=== PATIENT | male | born 1930 | race Caucasian/White ===

== ENCOUNTER → 2016-10-01 | Day surgery (SDC) | payer MEDICARE, OTHER ==
[2016-09-30 16:44] LABS: Urine Bilirubin Negative (Negative); Urine Blood Negative /uL (Negative); Urine Color Yellow (Yellow); Urine Glucose Normal (Normal); Urine Ketone Negative (Negative); Urine Mucus FEW (None Seen); Urine RBC 18 /hpf (0 - 3); Urine Urobilinogen Normal (Negative); Urine WBC Clumps PRESENT /hpf (None Seen)
[2016-09-30 16:52] LABS: Basophils # (auto) 0 uL; Basophils % (auto) 0.3 % (0.0-2.0); Eosinophils # (auto) 0.1 uL; Hemoglobin 13.4 g/dL (13.5-17.5); Lymphocytes # (auto) 1.3 uL; Lymphocytes % (auto) 18.2 % (10.0-50.0); Mean Corpuscular Hemoglobin 30.1 pg (28.0-32.0); Mean Corpuscular Hgb Conc. 31.2 g/dL (32.0-36.0); Mean Corpuscular Volume 96.7 fL (80.0-100.0); Mean Platelet Volume 9.9 fL (7.4-10.4); Monocytes # (auto) 0.6 uL; Monocytes % (auto) 7.7 % (0.0-12.0); Neutrophils # (auto) 5.2 uL; Neutrophils % (auto) 71.8 % (37.0-80.0); Platelet Count (auto) 171 10^3/uL (140-450); Red Cell Distribution Width 14.4 % (11.6-16.0); White Blood Cell 7.3 10^3/uL (4.4-10.8)
[2016-09-30 16:58] LABS: Urine Nitrite POSITIVE (Negative)
[2016-09-30 17:03] LABS: INR 1.09 (0.9-1.15); Partial Thromboplastin Time 26.6 sec (22.64-33.71); Prothrombin Time 11.2 sec (9.37-12.3)
[2016-09-30 17:32] LABS: Albumin 4.1 g/dL (3.4-5.0); Bilirubin, Total 0.5 mg/dL (0.2-1.0); Calcium 8.9 mg/dL (8.5-10.1); Potassium 4.3 mmol/L (3.5-5.1); Total Protein 6.8 g/dL (6.4-8.2)
[~2016-10-01] VITALS: Ht 180.3 cm; Wt 87.1 kg
[~2016-10-01] MED LIST: ASPI-231 PO; BUPIVACAINE 0.75% INJ 10ML MPV SDV IJ ONE; BUPIVACAINE W/ EPINEPH 0.25% INJ 50ML MDV ONE; CHOL500020 OR; CLOP75TA41 PO; CYAN1TAB14 PO; DEXAMETHASONE SOD PHOS 10MG/1ML VIAL INJ ONE; HYDROmorphone HCL 2 MG/ML VL IV PRN; KETOROLAC TROMETH 30 MG/ML 1ML VIAL IV ONE; LABETALOL HCL 5 MG/ML 4ML SYRINGE IV PRN; LEVO50TA7 PO; MIDAZOLAM HCL 1MG/1ML-2 ML VIAL IV PRN; MIDAZOLAM HCL 1MG/1ML-2 ML VIAL ONE; MORPHINE SULF INJ 2 MG/ML SYRINGE 1ML IV PRN; OLME20TA19 PO; OMEG1CAP59 PO; ONDANSETRON HCL 4 MG/2 ML VIAL IV ONE; PRAS1CAP PO; PROPOFOL 10 MG/ML 20 ML IV ONE; PYRI1TAB3 PO; RANO500T2 OR; ROPIVACAINE 0.5% (5MG/ML) 20ML AMPULE IJ ONE; SILVER NITRATE-POTAS NITRA STICK TOP ONE; SILVER SULFADIAZINE 1 % TOPICAL CREAM 50GM TOP ONE; ceFAZolin 1GM VL ONE; ceFAZolin 1GM/50ML D5W 50 ML IV ONE; ePHEDrine SULFATE 50 MG/ML AMP IV PRN; fentaNYL CITRATE 100 MCG/2 ML VL ONE; hydrALAZINE HCL 20 MG/ML VL IV PRN
[2016-10-01 10:59] VITALS: BP 139/68
== END | disposition home or self-care (01) ==
LOC: SUR 07:38
PROVIDERS: ATTEND Podiatrist Foot & Ankle Surgery
DX: L82.0 Inflamed seborrheic keratosis (principal); I10 Essential (primary) hypertension; Z95.0 Presence of cardiac pacemaker; E03.9 Hypothyroidism, unspecified; I25.10 Atherosclerotic heart disease of native coronary artery without angina pectoris; I63.9 Cerebral infarction, unspecified
CPT/HCPCS: 11422; 11423; 36415; 80053; 81001; 85025; 85610; 85730; C1887; J0690; J1100; J2250; J2704; J3010; J3490

== ENCOUNTER → 2016-11-10 | Outpatient (CLI) | payer MEDICARE, OTHER ==
[~2016-11-10] VITALS: Ht 180.3 cm; Wt 83.9 kg
[~2016-11-10] MED LIST changes: -BUPIVACAINE 0.75% INJ 10ML MPV SDV IJ ONE; -BUPIVACAINE W/ EPINEPH 0.25% INJ 50ML MDV ONE; -DEXAMETHASONE SOD PHOS 10MG/1ML VIAL INJ ONE; -HYDROmorphone HCL 2 MG/ML VL IV PRN; -KETOROLAC TROMETH 30 MG/ML 1ML VIAL IV ONE; -LABETALOL HCL 5 MG/ML 4ML SYRINGE IV PRN; -MIDAZOLAM HCL 1MG/1ML-2 ML VIAL IV PRN; -MIDAZOLAM HCL 1MG/1ML-2 ML VIAL ONE; -MORPHINE SULF INJ 2 MG/ML SYRINGE 1ML IV PRN; -ONDANSETRON HCL 4 MG/2 ML VIAL IV ONE; -PROPOFOL 10 MG/ML 20 ML IV ONE; -ROPIVACAINE 0.5% (5MG/ML) 20ML AMPULE IJ ONE; -SILVER NITRATE-POTAS NITRA STICK TOP ONE; -SILVER SULFADIAZINE 1 % TOPICAL CREAM 50GM TOP ONE; -ceFAZolin 1GM VL ONE; -ceFAZolin 1GM/50ML D5W 50 ML IV ONE; -ePHEDrine SULFATE 50 MG/ML AMP IV PRN; -fentaNYL CITRATE 100 MCG/2 ML VL ONE; -hydrALAZINE HCL 20 MG/ML VL IV PRN
[2016-11-10 09:00] VITALS: BP 143/89
[2016-11-10 09:49] VITALS: BP 149/83
[2016-11-10 12:28] LABS: Basophils # (auto) 0 uL; Basophils % (auto) 0.2 % (0.0-2.0); Eosinophils # (auto) 0.1 uL; Eosinophils % (auto) 1.5 % (0.0-7.0); Hematocrit 41.3 % (41.0-53.0); Hemoglobin 13.7 g/dL (13.5-17.5); Lymphocytes # (auto) 0.9 uL; Lymphocytes % (auto) 13.1 % (10.0-50.0); Mean Corpuscular Hemoglobin 31.5 pg (28.0-32.0); Mean Corpuscular Hgb Conc. 33.2 g/dL (32.0-36.0); Mean Corpuscular Volume 95.1 fL (80.0-100.0); Mean Platelet Volume 10.4 fL (7.4-10.4); Monocytes # (auto) 0.4 uL; Monocytes % (auto) 6.4 % (0.0-12.0); Neutrophils # (auto) 5.3 uL; Neutrophils % (auto) 78.8 % (37.0-80.0); Platelet Count (auto) 174 10^3/uL (140-450); Red Cell Distribution Width 14.3 % (11.6-16.0); White Blood Cell 6.7 10^3/uL (4.4-10.8)
[2016-11-10 12:51] LABS: INR 1.07 (0.9-1.15); Partial Thromboplastin Time 25.7 sec (22.64-33.71)
[2016-11-10 13:00] LABS: BUN/Creatinine Ratio 19.8; Potassium 4.2 mmol/L (3.5-5.1)
== END | disposition home or self-care (01) ==
LOC: Rad HDHVI 09:01
PROVIDERS: ATTEND Internal Medicine Cardiovascular Disease
DX: I10 Essential (primary) hypertension (principal); D64.9 Anemia, unspecified; R79.1 Abnormal coagulation profile
CPT/HCPCS: 36415; 71020; 80048; 85025; 85610; 85730; 93005; G0463

== ENCOUNTER → 2017-02-10 | Outpatient (CLI) | payer MEDICARE, OTHER | END | disposition home or self-care (01) | LOC: Rad HDHVI 15:05 | PROVIDERS: ATTEND Internal Medicine Cardiovascular Disease | DX: I20.0 Unstable angina (principal) | CPT/HCPCS: 93306; 93880 ==

== ENCOUNTER → 2017-06-04 | Outpatient (CLI) | payer MEDICARE, OTHER ==
[2017-06-04 12:23] LABS: Urine Bilirubin Negative (Negative); Urine Blood Negative /uL (Negative); Urine Color Yellow (Yellow); Urine Glucose 3+ mg/dL (Normal); Urine Ketone Negative (Negative); Urine Nitrite Negative (Negative); Urine Urobilinogen Normal (Negative)
[2017-06-04 12:24] LABS: Basophils # (auto) 0 uL; Basophils % (auto) 0.3 % (0.0-2.0); Eosinophils # (auto) 0.1 uL; Eosinophils % (auto) 2.8 % (0.0-7.0); Hematocrit 42.2 % (41.0-53.0); Hemoglobin 14.3 g/dL (13.5-17.5); Lymphocytes % (auto) 19.9 % (10.0-50.0); Mean Corpuscular Hemoglobin 32.9 pg (28.0-32.0); Mean Corpuscular Hgb Conc. 33.8 g/dL (32.0-36.0); Mean Corpuscular Volume 97.3 fL (80.0-100.0); Mean Platelet Volume 9.7 fL (6.9-10.8); Monocytes # (auto) 0.4 uL; Monocytes % (auto) 8.4 % (0.0-12.0); Neutrophils # (auto) 3.5 uL; Neutrophils % (auto) 68.6 % (37.0-80.0); Nucleated Red Blood Cells % 0.2 %; Platelet Count (auto) 150 10^3/uL (140-450); Red Cell Distribution Width 14.3 % (11.8-14.3); White Blood Cell 5.1 10^3/uL (4.4-10.8)
[2017-06-04 12:46] LABS: BUN/Creatinine Ratio 17.1; Bilirubin, Direct 0.2 mg/dL (0-0.2); Bilirubin, Total 0.6 mg/dL (0.2-1.0); Calcium 9.6 mg/dL (8.5-10.1); Potassium 4.3 mmol/L (3.5-5.1); Total Protein 7.2 g/dL (6.4-8.2)
== END | disposition home or self-care (01) ==
LOC: LAB 08:27
PROVIDERS: ATTEND Internal Medicine Cardiovascular Disease
DX: I10 Essential (primary) hypertension (principal); E78.00 Pure hypercholesterolemia, unspecified; K74.1 Hepatic sclerosis; E11.9 Type 2 diabetes mellitus without complications; R97.20 Elevated prostate specific antigen [PSA]; R53.81 Other malaise; E03.9 Hypothyroidism, unspecified; D64.9 Anemia, unspecified; E55.9 Vitamin D deficiency, unspecified; N39.0 Urinary tract infection, site not specified
CPT/HCPCS: 36415; 80048; 80061; 80076; 81003; 82306; 83036; 84153; 84403; 84443; 85025; 87086; 87088; 87186

== ENCOUNTER → 2017-12-04 | Outpatient (CLI) | payer MEDICARE, OTHER | END | disposition home or self-care (01) | LOC: Rad HDHVI 12:40 | PROVIDERS: ATTEND Internal Medicine Cardiovascular Disease | DX: M77.31 Calcaneal spur, right foot (principal); I10 Essential (primary) hypertension; E11.9 Type 2 diabetes mellitus without complications; E78.00 Pure hypercholesterolemia, unspecified; Z95.0 Presence of cardiac pacemaker | CPT/HCPCS: 73630 ==

== ENCOUNTER → 2017-12-25 | Outpatient (CLI) | payer MEDICARE, OTHER ==
[~2017-12-25] VITALS: Ht 180.3 cm; Wt 81.6 kg
== END | disposition home or self-care (01) ==
LOC: Rad HDHVI 08:06
PROVIDERS: ATTEND Internal Medicine Cardiovascular Disease
DX: Z00.01 Encounter for general adult medical examination with abnormal findings (principal); I63.9 Cerebral infarction, unspecified; I25.10 Atherosclerotic heart disease of native coronary artery without angina pectoris; M19.90 Unspecified osteoarthritis, unspecified site; I10 Essential (primary) hypertension; E78.00 Pure hypercholesterolemia, unspecified; E11.9 Type 2 diabetes mellitus without complications; Z95.0 Presence of cardiac pacemaker
CPT/HCPCS: 78452; 93017; 96374; A9500

== ENCOUNTER → 2018-06-30 | Outpatient (CLI) | payer MEDICARE, OTHER ==
[2018-06-30 12:14] LABS: Basophils # (auto) 0 uL; Basophils % (auto) 0.4 % (0.0-2.0); Eosinophils # (auto) 0.1 uL; Eosinophils % (auto) 1.9 % (0.0-7.0); Hematocrit 41.3 % (41.0-53.0); Hemoglobin 13.6 g/dL (13.5-17.5); Lymphocytes # (auto) 1.1 uL; Lymphocytes % (auto) 19.1 % (10.0-50.0); Mean Corpuscular Hemoglobin 32.6 pg (28.0-32.0); Mean Corpuscular Hgb Conc. 32.9 g/dL (32.0-36.0); Mean Corpuscular Volume 99.1 fL (80.0-100.0); Monocytes # (auto) 0.6 uL; Monocytes % (auto) 9.6 % (0.0-12.0); Nucleated Red Blood Cells % 0.2 %; Platelet Count (auto) 155 10^3/uL (140-450); Red Blood Cells 4.17 10^6/uL (4.5-5.90); Red Cell Distribution Width 14.9 % (11.8-14.3); Urine Blood Negative /uL (Negative); Urine Specific Gravity 1.023 (1.001-1.035); White Blood Cell 5.8 10^3/uL (4.4-10.8)
[2018-06-30 12:36] LABS: Albumin 3.6 g/dL (3.4-5.0)
[2018-06-30 12:40] LABS: BUN/Creatinine Ratio 22.8; Bilirubin, Direct 0.2 mg/dL (0-0.2); Bilirubin, Total 0.5 mg/dL (0.2-1.0); Total Protein 6.8 g/dL (6.4-8.2)
== END | disposition home or self-care (01) ==
LOC: Rad HDHVI 10:38
PROVIDERS: ATTEND Internal Medicine Cardiovascular Disease
DX: M16.12 Unilateral primary osteoarthritis, left hip (principal); K57.30 Diverticulosis of large intestine without perforation or abscess without bleeding; K40.90 Unilateral inguinal hernia, without obstruction or gangrene, not specified as recurrent; E78.5 Hyperlipidemia, unspecified; E03.9 Hypothyroidism, unspecified; E55.9 Vitamin D deficiency, unspecified; C61 Malignant neoplasm of prostate; E29.1 Testicular hypofunction; D51.9 Vitamin B12 deficiency anemia, unspecified; K74.1 Hepatic sclerosis; I10 Essential (primary) hypertension; N39.0 Urinary tract infection, site not specified; E11.9 Type 2 diabetes mellitus without complications; Z91.81 History of falling
CPT/HCPCS: 36415; 73700; 80048; 80061; 80076; 81003; 82306; 83036; 84153; 84403; 84443; 85025

== ENCOUNTER → 2018-07-06 | Outpatient (CLI) | payer MEDICARE, OTHER ==
[2018-07-06 10:25] VITALS: BP 146/84
[2018-07-06 10:40] VITALS: BP 140/80
== END | disposition home or self-care (01) ==
LOC: CHF HDHVI 10:33
PROVIDERS: ATTEND Internal Medicine Cardiovascular Disease
DX: S81.811A Laceration without foreign body, right lower leg, initial encounter (principal); X58.XXXA Exposure to other specified factors, initial encounter; Y93.89 Activity, other specified; Y92.89 Other specified places as the place of occurrence of the external cause; Y99.8 Other external cause status
CPT/HCPCS: G0463

== ENCOUNTER → 2018-07-09 | Outpatient (CLI) | payer MEDICARE, OTHER ==
[2018-07-09 09:30] VITALS: BP 150/52
== END | disposition home or self-care (01) ==
LOC: CHF HDHVI 09:26
PROVIDERS: ATTEND Internal Medicine Cardiovascular Disease
DX: S81.811A Laceration without foreign body, right lower leg, initial encounter (principal); X58.XXXA Exposure to other specified factors, initial encounter; Y93.89 Activity, other specified; Y92.89 Other specified places as the place of occurrence of the external cause; Y99.8 Other external cause status
CPT/HCPCS: G0463

== ENCOUNTER → 2018-07-16 | Outpatient (CLI) | payer MEDICARE, OTHER ==
[2018-07-16 09:30] VITALS: BP 130/71
[2018-07-16 10:15] VITALS: BP 125/71
== END | disposition home or self-care (01) ==
LOC: CHF HDHVI 09:34
PROVIDERS: ATTEND Internal Medicine Cardiovascular Disease
DX: S81.801A Unspecified open wound, right lower leg, initial encounter (principal); X58.XXXA Exposure to other specified factors, initial encounter; Y93.89 Activity, other specified; Y92.89 Other specified places as the place of occurrence of the external cause; Y99.8 Other external cause status
CPT/HCPCS: G0463

== ENCOUNTER → 2018-07-26 | Outpatient (CLI) | payer MEDICARE, OTHER ==
[~2018-07-26] VITALS: Ht 30.5 cm; Wt 0.5 kg
[~2018-07-26] MED LIST changes: +SILVER SULFADIAZINE 1 % TOPICAL CREAM 50GM TOP ONE; +SILVER SULFADIAZINE 1 % TOPICAL CREAM 50GM TOP SCH
[2018-07-26 09:10] VITALS: BP 130/78
[2018-07-26 09:40] VITALS: BP 130/80
== END | disposition home or self-care (01) ==
LOC: CHF HDHVI 09:11
PROVIDERS: ATTEND Internal Medicine Cardiovascular Disease
DX: S88.111A Complete traumatic amputation at level between knee and ankle, right lower leg, initial encounter (principal); X58.XXXA Exposure to other specified factors, initial encounter; Y93.89 Activity, other specified; Y92.89 Other specified places as the place of occurrence of the external cause; Y99.8 Other external cause status
CPT/HCPCS: G0463

== ENCOUNTER → 2018-07-28 | Outpatient (CLI) | payer MEDICARE, OTHER ==
[~2018-07-28] MED LIST changes: -SILVER SULFADIAZINE 1 % TOPICAL CREAM 50GM TOP SCH
[2018-07-28 09:15] VITALS: BP 136/73
== END | disposition home or self-care (01) ==
LOC: CHF HDHVI 09:07
PROVIDERS: ATTEND Internal Medicine Cardiovascular Disease
DX: S81.811A Laceration without foreign body, right lower leg, initial encounter (principal); X58.XXXA Exposure to other specified factors, initial encounter; Y93.89 Activity, other specified; Y92.89 Other specified places as the place of occurrence of the external cause; Y99.8 Other external cause status
CPT/HCPCS: G0463

== ENCOUNTER → 2018-07-30 | Outpatient (CLI) | payer MEDICARE, OTHER ==
[2018-07-30 09:40] VITALS: BP 147/66
== END | disposition home or self-care (01) ==
LOC: CHF HDHVI 09:41
PROVIDERS: ATTEND Internal Medicine Cardiovascular Disease
DX: S81.811A Laceration without foreign body, right lower leg, initial encounter (principal); X58.XXXA Exposure to other specified factors, initial encounter; Y93.89 Activity, other specified; Y92.89 Other specified places as the place of occurrence of the external cause; Y99.8 Other external cause status
CPT/HCPCS: G0463

== ENCOUNTER → 2018-08-02 | Outpatient (CLI) | payer MEDICARE, OTHER ==
[~2018-08-02] MED LIST changes: -SILVER SULFADIAZINE 1 % TOPICAL CREAM 50GM TOP ONE
[2018-08-02 08:10] VITALS: BP 143/68
[2018-08-02 08:30] VITALS: BP 142/64
== END | disposition home or self-care (01) ==
LOC: CHF HDHVI 08:09
PROVIDERS: ATTEND Internal Medicine Cardiovascular Disease
DX: M79.661 Pain in right lower leg (principal)
CPT/HCPCS: G0463

== ENCOUNTER → 2018-08-04 | Outpatient (CLI) | payer MEDICARE, OTHER ==
[2018-08-04 08:00] VITALS: BP 114/77
[2018-08-04 08:30] VITALS: BP 128/87
[2018-08-04 08:35] VITALS: BP 128/84
== END | disposition home or self-care (01) ==
LOC: CHF HDHVI 08:26
PROVIDERS: ATTEND Internal Medicine Cardiovascular Disease
DX: I25.10 Atherosclerotic heart disease of native coronary artery without angina pectoris (principal)
CPT/HCPCS: G0463

== ENCOUNTER → 2018-08-09 | Outpatient (CLI) | payer MEDICARE, OTHER ==
[2018-08-09 08:10] VITALS: BP 146/66
== END | disposition home or self-care (01) ==
LOC: CHF HDHVI 08:20
PROVIDERS: ATTEND Internal Medicine Cardiovascular Disease
DX: I25.10 Atherosclerotic heart disease of native coronary artery without angina pectoris (principal)
CPT/HCPCS: G0463

== ENCOUNTER → 2018-08-11 | Outpatient (CLI) | payer MEDICARE, OTHER ==
[2018-08-11 08:05] VITALS: BP 135/80
[2018-08-11 08:45] VITALS: BP 135/73
== END | disposition home or self-care (01) ==
LOC: CHF HDHVI 08:17
PROVIDERS: ATTEND Internal Medicine Cardiovascular Disease
DX: S88.111A Complete traumatic amputation at level between knee and ankle, right lower leg, initial encounter (principal); X58.XXXA Exposure to other specified factors, initial encounter; Y93.89 Activity, other specified; Y92.89 Other specified places as the place of occurrence of the external cause; Y99.8 Other external cause status
CPT/HCPCS: G0463

== ENCOUNTER → 2018-08-13 | Outpatient (CLI) | payer MEDICARE, OTHER ==
[2018-08-13 08:30] VITALS: BP 151/70
[2018-08-13 08:53] VITALS: BP 153/64
== END | disposition home or self-care (01) ==
LOC: CHF HDHVI 08:32
PROVIDERS: ATTEND Internal Medicine Cardiovascular Disease
DX: S81.811A Laceration without foreign body, right lower leg, initial encounter (principal); X58.XXXA Exposure to other specified factors, initial encounter; Y93.89 Activity, other specified; Y92.89 Other specified places as the place of occurrence of the external cause; Y99.8 Other external cause status
CPT/HCPCS: G0463

== ENCOUNTER → 2018-08-16 | Outpatient (CLI) | payer MEDICARE, OTHER ==
[2018-08-16 08:30] VITALS: BP 148/72
[2018-08-16 09:00] VITALS: BP 128/64
== END | disposition home or self-care (01) ==
LOC: CHF HDHVI 08:32
PROVIDERS: ATTEND Internal Medicine Cardiovascular Disease
DX: M25.78 Osteophyte, vertebrae (principal); M48.061 Spinal stenosis, lumbar region without neurogenic claudication; S81.811A Laceration without foreign body, right lower leg, initial encounter; X58.XXXA Exposure to other specified factors, initial encounter; Y93.89 Activity, other specified; Y92.89 Other specified places as the place of occurrence of the external cause; Y99.8 Other external cause status
CPT/HCPCS: 72100; G0463

== ENCOUNTER → 2018-08-18 | Outpatient (CLI) | payer MEDICARE, OTHER ==
[2018-08-18 08:55] VITALS: BP 166/84
[2018-08-18 09:15] VITALS: BP 166/84
[2018-08-18 09:25] VITALS: BP 152/84
== END | disposition home or self-care (01) ==
LOC: CHF HDHVI 09:01
PROVIDERS: ATTEND Internal Medicine Cardiovascular Disease
DX: S81.801D Unspecified open wound, right lower leg, subsequent encounter (principal); X58.XXXD Exposure to other specified factors, subsequent encounter
CPT/HCPCS: G0463

== ENCOUNTER → 2018-08-20 | Outpatient (CLI) | payer MEDICARE, OTHER ==
[2018-08-20 08:45] VITALS: BP 131/67
[2018-08-20 09:30] VITALS: BP 135/66
== END | disposition home or self-care (01) ==
LOC: CHF HDHVI 08:45
PROVIDERS: ATTEND Internal Medicine Cardiovascular Disease
DX: S81.811A Laceration without foreign body, right lower leg, initial encounter (principal); X58.XXXA Exposure to other specified factors, initial encounter; Y93.89 Activity, other specified; Y92.89 Other specified places as the place of occurrence of the external cause; Y99.8 Other external cause status
CPT/HCPCS: G0463

== ENCOUNTER → 2018-08-23 | Outpatient (CLI) | payer MEDICARE, OTHER ==
[2018-08-23 07:55] VITALS: BP 155/79
[2018-08-23 08:20] VITALS: BP 155/79
[2018-08-23 08:25] VITALS: BP 136/59
== END | disposition home or self-care (01) ==
LOC: CHF HDHVI 07:52
PROVIDERS: ATTEND Internal Medicine Cardiovascular Disease
DX: S88.111A Complete traumatic amputation at level between knee and ankle, right lower leg, initial encounter (principal); X58.XXXA Exposure to other specified factors, initial encounter; Y93.89 Activity, other specified; Y92.89 Other specified places as the place of occurrence of the external cause; Y99.8 Other external cause status
CPT/HCPCS: G0463

== ENCOUNTER 2019-02-03 13:18 | Emergency (ER) | payer MEDICARE, OTHER ==
[~2019-02-03] VITALS: Ht 180.3 cm; Wt 81.6 kg
[2019-02-03] MEDS ORDERED: ACETAMINOPHEN 500 MG TAB PO ONE (13:45)
[2019-02-03 14:29] LABS: Basophils # (auto) 0 uL; Basophils % (auto) 0.2 % (0.0-2.0); Eosinophils # (auto) 0 uL; Eosinophils % (auto) 0.2 % (0.0-7.0); Hematocrit 37.3 % (41.0-53.0); Hemoglobin 12.8 g/dL (13.5-17.5); Lymphocytes # (auto) 0.4 uL; Lymphocytes % (auto) 6.6 % (10.0-50.0); Mean Corpuscular Hemoglobin 32.7 pg (28.0-32.0); Mean Corpuscular Hgb Conc. 34.2 g/dL (32.0-36.0); Mean Corpuscular Volume 95.6 fL (80.0-100.0); Monocytes # (auto) 0.7 uL; Monocytes % (auto) 12.1 % (0.0-12.0); Neutrophils # (auto) 4.7 uL; Neutrophils % (auto) 80.9 % (37.0-80.0); Platelet Count (auto) 116 10^3/uL (140-450); Red Cell Distribution Width 13.8 % (11.8-14.3); White Blood Cell 5.8 10^3/uL (4.4-10.8)
[2019-02-03 14:42] LABS: Anion Gap 8 (5-15); Blood Urea Nitrogen 24 mg/dL (7-18); Calcium 8.1 mg/dL (8.5-10.1); Carbon Dioxide 25 mmol/L (21-32); Chloride 100 mmol/L (98-107); Glucose 219 mg/dL (74-106); Sodium 133 mmol/L (136-145)
[2019-02-03 14:50] LABS: Alanine Aminotransferase 21 U/L (16-61); Alkaline Phosphatase 60 U/L (45-117); Aspartate Aminotransferase 15 U/L (15-37); Bilirubin, Total 0.6 mg/dL (0.2-1.0); GFR African American 73 mL/min; GFR Non-African American 61 mL/min; Lactate Dehydrogenase 166 U/L (87-241); Total Protein 6.7 g/dL (6.4-8.2)
[2019-02-03] MEDS ORDERED: SODIUM CHLORIDE 0.9% 1,000 ML IV ONE (15:46)
[2019-02-03] MEDS ORDERED: DOXYCYCLINE 100MG/250ML 250 ML IV ONE (16:00)
[2019-02-03] MEDS ORDERED: LEVOFLOXACIN 500MG 100 ML IV ONE (16:45)
[2019-02-03 18:00] VITALS: BP 135/57
== END 2019-02-03 18:16 | disposition home or self-care (01) ==
LOC: EDBD 13:18 → EDUNIT# 13:18 → ER 13:28
DX: J18.9 Pneumonia, unspecified organism (principal); L03.115 Cellulitis of right lower limb; Z95.0 Presence of cardiac pacemaker
CPT/HCPCS: 36415; 71045; 80053; 83615; 84484; 85025; 87040; 93005; 96365; 96366; 96368; 99284; J1956; J3490; J7030

== ENCOUNTER → 2019-03-28 | Outpatient (CLI) | payer MEDICARE, OTHER ==
[~2019-03-28] MED LIST changes: -OLME20TA19 PO; +OLME20TA53 PO
== END | disposition home or self-care (01) ==
LOC: Rad HDHVI 09:43
PROVIDERS: ATTEND Internal Medicine Cardiovascular Disease
DX: I73.9 Peripheral vascular disease, unspecified (principal)
CPT/HCPCS: 93970

== ENCOUNTER → 2019-04-01 | Outpatient (CLI) | payer MEDICARE, OTHER ==
[2019-04-01 13:39] LABS: Urine WBC None Seen /hpf (0 - 3)
[2019-04-01 13:52] LABS: Basophils # (auto) 0 uL; Basophils % (auto) 0.4 % (0.0-2.0); Eosinophils # (auto) 0.1 uL; Eosinophils % (auto) 1.8 % (0.0-7.0); Hematocrit 40.3 % (41.0-53.0); Hemoglobin 13.6 g/dL (13.5-17.5); Lymphocytes # (auto) 1.3 uL; Lymphocytes % (auto) 21.9 % (10.0-50.0); Mean Corpuscular Hemoglobin 32.5 pg (28.0-32.0); Mean Corpuscular Hgb Conc. 33.7 g/dL (32.0-36.0); Mean Corpuscular Volume 96.4 fL (80.0-100.0); Monocytes # (auto) 0.6 uL; Monocytes % (auto) 10.1 % (0.0-12.0); Neutrophils # (auto) 3.8 uL; Neutrophils % (auto) 65.8 % (37.0-80.0); Platelet Count (auto) 147 10^3/uL (140-450); Red Blood Cells 4.18 10^6/uL (4.5-5.90); Red Cell Distribution Width 14.7 % (11.8-14.3); White Blood Cell 5.7 10^3/uL (4.4-10.8)
[2019-04-01 13:57] LABS: Urine Bacteria NONE SEEN /hpf (None Seen); Urine Blood Negative /uL (Negative)
[2019-04-01 14:03] LABS: Albumin 3.8 g/dL (3.4-5.0); Calcium 8.9 mg/dL (8.5-10.1)
[2019-04-01 14:07] LABS: BUN/Creatinine Ratio 17.6; Bilirubin, Total 0.7 mg/dL (0.2-1.0); Total Protein 6.9 g/dL (6.4-8.2)
[2019-04-01 14:11] LABS: Free T4 (Free Thyroxine) 0.87 ng/dL (0.89-1.76)
== END | disposition home or self-care (01) ==
LOC: LAB 13:28
PROVIDERS: ATTEND Internal Medicine Cardiovascular Disease
DX: N39.0 Urinary tract infection, site not specified (principal); D51.9 Vitamin B12 deficiency anemia, unspecified; E03.9 Hypothyroidism, unspecified; K90.9 Intestinal malabsorption, unspecified; Z79.899 Other long term (current) drug therapy
CPT/HCPCS: 36415; 80053; 80061; 81001; 82607; 83036; 84439; 84443; 85025

== ENCOUNTER → 2019-05-25 | Outpatient (CLI) | payer MEDICARE, OTHER ==
[~2019-05-25] VITALS: Ht 30.5 cm; Wt 0.5 kg
[~2019-05-25] MED LIST changes: +LEVO25TA6 PO
[2019-05-25 09:55] VITALS: BP 134/75
--- NOTE | 2019-05-25 09:55 | NUR ---
CHF PT ARRIVED AT THE CHF CLINIC FOR HARD TIME BREATHING , 0 DISTRESS THOUGH JUST PAIN NOTED TO LOWER DIAPHRAGM. VSS IV STARTED PT SENT FOR CHEST XRAY
--- NOTE | 2019-05-25 10:00 | NUR ---
IV insertion IV access obtained, via clean sterile technique by inserting 20 gauge catheter at after attempt(s). IV secured properly. No trauma to site. Patient tolerated procedure well.
--- NOTE | 2019-05-25 11:00 | NUR ---
EKG DONE MD LOVING UPDATE WITH EKG AND LABS
[2019-05-25 11:42] LABS: Basophils # (auto) 0.1 uL; Basophils % (auto) 0.5 % (0.0-2.0); Eosinophils # (auto) 0 uL; Eosinophils % (auto) 0.3 % (0.0-7.0); Hematocrit 39.6 % (41.0-53.0); Hemoglobin 13.7 g/dL (13.5-17.5); Lymphocytes # (auto) 0.9 uL; Lymphocytes % (auto) 9.4 % (10.0-50.0); Mean Corpuscular Hgb Conc. 34.5 g/dL (32.0-36.0); Mean Corpuscular Volume 95.5 fL (80.0-100.0); Monocytes # (auto) 0.9 uL; Monocytes % (auto) 8.6 % (0.0-12.0); Neutrophils # (auto) 8.1 uL; Neutrophils % (auto) 81.2 % (37.0-80.0); Platelet Count (auto) 143 10^3/uL (140-450); Red Blood Cells 4.15 10^6/uL (4.5-5.90); Red Cell Distribution Width 14.5 % (11.8-14.3)
[2019-05-25 11:44] LABS: Calcium 9.1 mg/dL (8.5-10.1); Magnesium 2.7 mg/dL (1.6-2.6)
--- NOTE | 2019-05-25 12:15 | NUR ---
[facility] PT TO BE SCHEDULED FOR A LEFT HEART CATH PER MD LOVING
[2019-05-25 12:25] VITALS: BP 134/75
--- NOTE | 2019-05-25 12:25 | NUR ---
Discharge Instructions See e-MAR for any mediations given with this visit. Patient education given on disease process. Patient verbalized understanding. Previous labs reviewed. Patient discharged in stable condition with after care instructions and follow up appointment. PT UPDATED ON DR OSPINA PLAN TO PERFORM A LEFT HEART CATH
--- NOTE | 2019-05-25 12:25 | NUR ---
IV removal IV DC'd with sterile technique, catheter fully intact. Pressure dressing applied to site. Patient tolerated procedure well. Discharged with aftercare instructions per MD. NOTE:
[2019-05-25 15:43] LABS: INR 0.99 (0.9-1.15); Partial Thromboplastin Time 25.9 sec (23.64-32.05)
== END | disposition home or self-care (01) ==
LOC: CHF HDHVI 09:53
PROVIDERS: ATTEND Internal Medicine Cardiovascular Disease
DX: I70.0 Atherosclerosis of aorta (principal); R79.1 Abnormal coagulation profile; D64.9 Anemia, unspecified; E83.40 Disorders of magnesium metabolism, unspecified; I10 Essential (primary) hypertension
CPT/HCPCS: 36415; 71046; 80048; 83735; 85025; 85610; 85730; G0463

== ENCOUNTER 2019-06-02 08:35 | Inpatient (IN) | payer MEDICARE, OTHER ==
[2019-06-02] VITALS (35 sets, daily range): BP systolic 95–124; BP diastolic 49–86
[~2019-06-02] VITALS: Ht 180.3 cm; Wt 80.0 kg
[~2019-06-02 08:35] MED LIST changes: -LEVO25TA6 PO
[2019-06-02] MEDS ORDERED: LIDOCAINE 2%HCL (LOCAL ANESTH.) INJ 20ML MDV ONE (10:48)
[2019-06-02] MEDS ORDERED: IOHEXOL 350 MG/ML 100ML IJ ONE (10:58)
[2019-06-02] MEDS ORDERED: SODIUM CHL 0.9% 0 ML ONE (10:58)
[2019-06-02] MEDS ORDERED: MIDAZOLAM HCL 1MG/1ML-2 ML VIAL ONE (10:58)
[2019-06-02] MEDS ORDERED: ANGIOMAX 250 MG VIAL IV ONE (10:58)
[2019-06-02] MEDS ORDERED: fentaNYL CITRATE 100 MCG/2 ML VL ONE (10:58)
[2019-06-02] MEDS ORDERED: ENOXAPARIN SOD 30 MG/0.3 ML SYRINGE ONE (11:41)
[2019-06-02] MEDS ORDERED: HEPARIN DRIP/D5W 100UNITS/ML 250 ML IV ONE (11:50)
[2019-06-02] MEDS ORDERED: NITROGLYCERIN 50MG/250ML 250 ML IV ONE (11:51)
[2019-06-02] MEDS ORDERED: HEPARIN DRIP/D5W 100UNITS/ML 250 ML IV SCH (12:05)
[2019-06-02] MEDS: NITROGLYCERIN 50MG/250ML 250 ML IV SCH (12:15)
[2019-06-02] MEDS ORDERED: ACETAMINOPHEN 500 MG TAB PO PRN (12:30)
[2019-06-02] MEDS ORDERED: ONDANSETRON HCL 4 MG/2 ML VIAL IV PRN (12:30)
[2019-06-02] MEDS ORDERED: ENOXAPARIN SOD 30 MG/0.3 ML SYRINGE IV ONE (12:30)
[2019-06-02] MEDS ORDERED: HYDROcodone-ACET 5/325MG TAB PO PRN (12:30)
[2019-06-02 13:06] LABS: Basophils # (auto) 0 uL; Basophils % (auto) 0.3 % (0.0-2.0); Eosinophils # (auto) 0.1 uL; Eosinophils % (auto) 2.5 % (0.0-7.0); Hematocrit 35.7 % (41.0-53.0); Lymphocytes # (auto) 0.9 uL; Lymphocytes % (auto) 14.4 % (10.0-50.0); Mean Corpuscular Hemoglobin 32.8 pg (28.0-32.0); Mean Corpuscular Hgb Conc. 33.7 g/dL (32.0-36.0); Mean Corpuscular Volume 97.3 fL (80.0-100.0); Monocytes # (auto) 0.6 uL; Neutrophils # (auto) 4.3 uL; Neutrophils % (auto) 72.8 % (37.0-80.0); Platelet Count (auto) 186 10^3/uL (140-450); Red Blood Cells 3.67 10^6/uL (4.5-5.90); Red Cell Distribution Width 14.3 % (11.8-14.3); White Blood Cell 5.9 10^3/uL (4.4-10.8)
[2019-06-02] MEDS ORDERED: LEVO25TA6 PO (13:26)
[2019-06-02 13:31] LABS: INR 1.05 (0.9-1.15); Partial Thromboplastin Time 36.6 sec (23.64-32.05)
--- NOTE | 2019-06-02 14:20 | NUR ---
Pt being admitted to ICU MARIA ELENA FLOWERS admitted to ICU via gurney on library monitor, and portable 02. Patient transferred to bed, connected to ICU monitoring and oxygen, and weighed by bedscale. Patient oriented to Adelina frazier RN, unit, room, bed, and unit policies regarding patient care and visiting hours. All questions and concerns addressed, patient verbalized understanding. Patient on Heparin gtt and Tridil gtt at fixed rates (see IV spreadsheet). Skin intact. Right groin incision site CDI, no bleeding or hematoma noted at this time. Patient instructed to call for assistance. Patient verbalized understanding. Bed locked in lowest position, alarms in place. Call light within reach. Will continue to monitor.
--- NOTE | 2019-06-02 14:28 | NUR ---
MD UPDATE (Cardiothoracic) called for update on patient to place pre-op lab orders and imaging prior to his consult. Orders placed.
[2019-06-02 14:44] LABS: Potassium 3.9 mmol/L (3.5-5.1)
[2019-06-02 14:51] LABS: Albumin 2.9 g/dL (3.4-5.0); BUN/Creatinine Ratio 21.1; Bilirubin, Total 0.5 mg/dL (0.2-1.0); Calcium 8.5 mg/dL (8.5-10.1); Total Protein 5.9 g/dL (6.4-8.2)
--- NOTE | 2019-06-02 15:08 | NUR ---
WAREHOUSE PACKAGING SUPERVISOR AT BEDSIDE
--- NOTE | 2019-06-02 15:24 | NUR ---
CARDIOTHORACIC CONSULT COMPLETE spoke with patient regarding need for Coronary Bypass procedure. Patient verbalized understanding, discussed plan of care and for surgery to be performed next week due to patient being on Plavix.
--- NOTE | 2019-06-02 18:30 | NUR ---
ELIMINATION Patient stood at bedside to urinate in urinal. Patient denies pain, distress, or dizziness upon changing position. Patient returned to resting in bed and eating dinner. Bed locked in lowest position with call light within reach.
[2019-06-02 18:55] LABS: INR 1.02 (0.9-1.15); Partial Thromboplastin Time 34.4 sec (23.64-32.05)
--- NOTE | 2019-06-02 19:05 | NUR ---
REPORT Report given to Laurel ZEPEDA, care endorsed. Patient resting in bed, vitals stable, no distress noted.
--- NOTE | 2019-06-02 20:00 | NUR ---
OPENING NOTE: ASSUMED CARE FROM DUANE CALDWELL. A&OX4. PLEASANT, COOPERATIVE, AND APPROPRIATE. ATRIAL PACED, HR 70s. SBP 100-110s ON FIXED NITRO GTT RATE. +PULSES. LS CTA, DIMINISHED TO BASES. EVEN AND UNLABORED BREATHING, SpO2>92% ON RA. INTERMITTENT PRODUCTIVE COUGH, SMALL, THIN, AND FROTHY SPUTUM. ABD SOFT. HYPOACTIVE BS. LBM 10/3. DENIES NAUSEA/VOMITING. CONSUMED 100% OF DINNER. VOIDS VIA URINAL DENIES DYSURIA, HESITANCY, OR INCONTINENCE. RIGHT GROIN ANGIO SITE; NO HEMATOMA, ECCHYMOSIS, OR ACTIVE BLEEDING NOTED. SKIN OTHERWISE INTACT. RIGHT FOREARM 20 G PIV, CDI, PATENT WITH BLOOD RETURN, INFUSING NITRO GTT. LEFT FOREARM 20 G PIV, CDI, PATIENT WITH BLOOD RETURN, INFUSING HEPARIN GTT. REPORTS CRAMPING IN RIGHT LEG, BUT REFUSING PAIN MEDICATION. REINFORCED POC. MAINTAINED PATIENT SAFETY: BED LOCKED AND IN THE LOWEST POSITION, BED ALARM ON, CALL LIGHT WITHIN REACH. ENCOURAGED PATIENT VERBALIZE QUESTIONS AND CONCERNS. PATIENT VERBALIZED UNDERSTANDING OF POC. WILL CONT CARE.
--- NOTE | 2019-06-02 21:30 | NUR ---
ROUNDED: SLEEPING, EVEN AND UNLABORED BREATHING, VSS. WILL CONT CARE.
--- NOTE | 2019-06-02 23:53 | NUR ---
CALLED LAB TO INFORM OF MIDNIGHT PTT DRAW
[2019-06-03] VITALS (88 sets, daily range): BP systolic 89–134; BP diastolic 38–83
--- NOTE | 2019-06-03 | NUR ---
ROUNDED: PATIENT RESTING IN BED. DENIES NEEDS AT THIS TIME. DENIES PAIN. RIGHT GROIN ANGIO SITE, CDI, NO ECCHYMOSIS, HEMATOMA, OR ACTIVE BLEEDING NOTED.VSS. WILL CONT CARE
--- NOTE | 2019-06-03 00:15 | NUR ---
LAB AT BEDSIDE FOR PTT
--- NOTE | 2019-06-03 00:20 | NUR ---
PIV ASSESSMENT: RIGHT FOREARM 20 G PIV, CDI, AND PATENT WITH BLOOD RETURN. NO S/S OF INFILTRATION OR PHLEBITIS. LEFT FOREARM 20 G PIV, CDI, AND PATENT WITH BLOOD RETURN. NO S/S OF INFILTRATION OR PHLEBITIS.
[2019-06-03 00:47] LABS: INR 1.03 (0.9-1.15); Partial Thromboplastin Time 31.6 sec (23.64-32.05)
--- NOTE | 2019-06-03 01:00 | NUR ---
PTT 31.6 - CONTINUE HEPARIN GTT AT FIXED RATE
--- NOTE | 2019-06-03 02:15 | NUR ---
LEG CRAMPING: PATIENT REPORTS CRAMPING IN HIS RIGHT LEG. HE STATES HE FELL 32 FT FROM A BUILDING "A WHILE AGO" AND THE MUSCLES CRAMP UP FROM TIME TO TIME. PATIENT STOOD AT BEDSIDE UNTIL CRAMPING RESOLVED.
--- NOTE | 2019-06-03 04:00 | NUR ---
ANGIO SITE: NO ECCHYMOSIS, HEMATOMA, OR ACTIVE BLEEDING NOTED.
--- NOTE | 2019-06-03 05:23 | NUR ---
CLOSING NOTE: 20 G PIV BILATERAL FOREARM, PATENT, CDI. NO INFILTRATION OR PHLEBITIS. VOIDED 200 ML OF DARK URINE. PATIENT REPORTS THAT HE HASN'T DRANK ANYTHING OVERNIGHT. STATES AT HOME HE USUALLY DRINKS MILK OR TEA. INFORMED THAT UNIT HAS MILK AND TEA. PATIENT REFUSED AT THIS TIME. [employer] WORKERS FILLED PITCHER WITH FRESH WATER.
--- NOTE | 2019-06-03 06:00 | NUR ---
UOP 150 ML - PAGED DR. LOVING
--- NOTE | 2019-06-03 06:30 | NUR ---
LAB AT BEDSIDE
--- NOTE | 2019-06-03 06:46 | NUR ---
PLACED ON 2L O2 VIA NC - INTERMITTENTLY DESATURATES
[2019-06-03] MEDS ORDERED: LEVOTHYROXINE SODIUM 25 MCG TAB PO SCH (07:00)
[2019-06-03 07:08] LABS: Basophils # (auto) 0 uL; Basophils % (auto) 0.3 % (0.0-2.0); Eosinophils # (auto) 0.1 uL; Eosinophils % (auto) 1.6 % (0.0-7.0); Hematocrit 35.8 % (41.0-53.0); Hemoglobin 12.4 g/dL (13.5-17.5); Lymphocytes # (auto) 0.8 uL; Lymphocytes % (auto) 11.9 % (10.0-50.0); Mean Corpuscular Hemoglobin 33.4 pg (28.0-32.0); Mean Corpuscular Hgb Conc. 34.7 g/dL (32.0-36.0); Mean Corpuscular Volume 96.3 fL (80.0-100.0); Monocytes # (auto) 0.6 uL; Monocytes % (auto) 9.2 % (0.0-12.0); Neutrophils # (auto) 5.2 uL; Nucleated Red Blood Cells % 0.1 %; Platelet Count (auto) 204 10^3/uL (140-450); Red Blood Cells 3.72 10^6/uL (4.5-5.90); Red Cell Distribution Width 14.3 % (11.8-14.3); White Blood Cell 6.8 10^3/uL (4.4-10.8)
[2019-06-03 07:24] LABS: Partial Thromboplastin Time 32.1 sec (23.64-32.05)
[2019-06-03 07:28] LABS: Potassium 4.1 mmol/L (3.5-5.1)
[2019-06-03 07:31] LABS: BUN/Creatinine Ratio 18.3; Calcium 8.7 mg/dL (8.5-10.1)
--- NOTE | 2019-06-03 07:32 | NUR ---
REPORT AND CARE ENDORSED TO DUANE GUAMAN
--- NOTE | 2019-06-03 08:00 | NUR ---
ASSESSMENT COMPLETED, SEE INTERVENTIONS
--- NOTE | 2019-06-03 10:00 | NUR ---
DR LIVINGSTON AT BEDSIDE, NEW ORDERS RECEIVED
[2019-06-03] MEDS ORDERED: FUROSEMIDE 20 MG TAB PO SCH (10:30)
--- NOTE | 2019-06-03 11:30 | NUR ---
OOB TO CHAIR FOR LUNCH STANDBY ASSIST
[2019-06-03] MEDS: FUROSEMIDE 40 MG TAB PO SCH (11:53)
[2019-06-03 12:13] LABS: INR 1.01 (0.9-1.15); Partial Thromboplastin Time 30.3 sec (23.64-32.05)
--- NOTE | 2019-06-03 14:00 | NUR ---
BACK TO BED
--- NOTE | 2019-06-03 16:00 | NUR ---
DR LOVING AT BEDSIDE, GAVE NEW ORDERS.
[2019-06-03] MEDS ORDERED: HEPARIN DRIP/D5W 100UNITS/ML 250 ML IV SCH (16:51)
--- NOTE | 2019-06-03 18:00 | NUR ---
FRIENDS AT BEDSIDE
[2019-06-03 18:51] LABS: INR 1.06 (0.9-1.15); Partial Thromboplastin Time 30.3 sec (23.64-32.05)
[2019-06-03] MEDS ORDERED: HEPARIN SODIUM (PORCINE) 5000 UNITS/ML 1ML VIAL IV ONE (19:15)
[2019-06-03] MEDS: NITROGLYCERIN 50MG/250ML 250 ML IV SCH (19:18)
[2019-06-03] MEDS: TEMAZEPAM 15 MG CAP PO PRN (20:01)
[2019-06-03] MEDS: POTASSIUM CHL 20 Meq TABLET PO SCH (20:01)
--- NOTE | 2019-06-03 20:01 | NUR ---
SCHEDULED (2199) MEDS GIVEN EARLY: PATIENT STATES HE GOES TO SLEEP AT 2000 NORMALLY. REQUESTING MEDICATIONS TO BE GIVEN NOW. SCHEDULED MEDICATIONS GIVEN. WILL CONT CARE
--- NOTE | 2019-06-03 20:02 | NUR ---
DIFFICULTY SLEEPING - RESTORIL PRN GIVEN: PATIENT REPORTS DIFFICULTY SLEEPING LAST NIGHT, AND DOES NOT FEEL RESTED TODAY. REQUESTING SLEEPING PILL. RESTORIL PRN GIVEN. WILL CONT CARE
--- NOTE | 2019-06-03 20:15 | NUR ---
OPENING NOTE: ASSUMED CARE FROM ROWENA ZEPEDA. A&OX4. APPROPRIATE. INTERMITTENTLY ATRIAL PACED, HR 60-70s. SBP 90-110s ON FIXED NITRO GTT RATE. +PULSES. LS CTA, DIMINISHED TO BASES. EVEN AND UNLABORED BREATHING, SpO2>92% ON 2L O2 VIA NC. INTERMITTENT PRODUCTIVE COUGH, SMALL, THIN, AND FROTHY SPUTUM. ABD SOFT. HYPOACTIVE BS. LBM 10/3. DENIES NAUSEA/VOMITING. CONSUMED 75 OF DINNER. VOIDS VIA URINAL DENIES DYSURIA, HESITANCY, OR INCONTINENCE. RIGHT GROIN ANGIO SITE; NO HEMATOMA, ECCHYMOSIS, OR ACTIVE BLEEDING NOTED. SKIN OTHERWISE INTACT. RIGHT FOREARM 20 G PIV, CDI, PATENT WITH BLOOD RETURN, INFUSING NITRO GTT. LEFT FOREARM 20 G PIV, CDI, PATIENT WITH BLOOD RETURN, INFUSING HEPARIN GTT. DENIES PAIN, CHEST PAIN, SOB, HEADACHE, DIZZINESS, N/V, NUMBNESS AND TINGLING. REINFORCED POC. MAINTAINED PATIENT SAFETY: BED LOCKED AND IN THE LOWEST POSITION, BED ALARM ON, CALL LIGHT WITHIN REACH. ENCOURAGED PATIENT VERBALIZE QUESTIONS AND CONCERNS. PATIENT VERBALIZED UNDERSTANDING OF POC. WILL CONT CARE.
--- NOTE | 2019-06-03 20:30 | NUR ---
BM X1: INDEPENDENTLY AMBULATED TO AND FROM THE TOILET. DENIES DIARRHEA, OR BLOOD IN STOOL. REINFORCED IMPORTANCE OF CALLING STAFF TO ASSIST WITH LINE MANIPULATION. WILL CONT CARE
--- NOTE | 2019-06-03 22:15 | NUR ---
ROUNDED: SLEEPING, EVEN AND UNLABORED BREATHING. VSS. WILL CONT CARE
[2019-06-04] VITALS (90 sets, daily range): BP systolic 89–123; BP diastolic 39–69
--- NOTE | 2019-06-04 00:12 | NUR ---
SBP < 90 - PATIENT SLEEPING ON HIS SIDE WITH HIS ARMS CURLED UP
--- NOTE | 2019-06-04 00:12 | NUR ---
INFORMED LAB OF NEED FOR PTT DRAW
--- NOTE | 2019-06-04 00:31 | NUR ---
LAB AT BEDSIDE
--- NOTE | 2019-06-04 00:41 | NUR ---
ROUNDED: SLEEPY, BUT AROUSABLE. BP IN LOW 100s. WILL CONT CARE
[2019-06-04 01:05] LABS: INR 1.07 (0.9-1.15); Partial Thromboplastin Time 52.6 sec (23.64-32.05)
--- NOTE | 2019-06-04 01:19 | NUR ---
PTT 52.6 - NO CHANGE PER PROTOCOL
--- NOTE | 2019-06-04 02:46 | NUR ---
ROUNDED: AWAKE, RESTING IN BED. NO NEEDS IDENTIFIED. VSS. WILL CONT CARE
--- NOTE | 2019-06-04 04:19 | NUR ---
PIV ASSESSMENT: RIGHT FOREARM 20 G PIV, CDI, AND FLUSHES EASILY BUT NO BLOOD RETURN. NO S/S OF INFILTRATION, PHLEBITIS, OR PAIN. LEFT FOREARM 20 G PIV, CDI, AND PATENT WITH BLOOD RETURN. NO S/S OF INFILTRATION, PHLEBITIS, OR PAIN INSTRUCTED TO INFORM STAFF OF ANY DISCOMFORT. PATIENT VERBALIZED UNDERSTANDING OF POC.
--- NOTE | 2019-06-04 06:14 | NUR ---
CLOSING NOTE: AWAKE, RESTING IN BED. NO COMPLAINTS. VSS. WILL CONT CARE
--- NOTE | 2019-06-04 06:20 | NUR ---
NOTIFIED LAB OF NEED FOR TIMED PTT DRAW
--- NOTE | 2019-06-04 07:00 | NUR ---
LAB AT BEDSIDE FOR DRAW
--- NOTE | 2019-06-04 07:19 | NUR ---
REPORT AND CARE ENDORSED TO ROWENA ZEPEDA
--- NOTE | 2019-06-04 07:21 | NUR ---
REPORT RECEIVED, ASSUMING CARE
[2019-06-04 07:30] LABS: BUN/Creatinine Ratio 16.1; Potassium 4.1 mmol/L (3.5-5.1)
[2019-06-04 07:33] LABS: INR 1.04 (0.9-1.15); Partial Thromboplastin Time 37.8 sec (23.64-32.05)
[2019-06-04 07:34] LABS: Basophils # (auto) 0 uL; Basophils % (auto) 0.8 % (0.0-2.0); Eosinophils # (auto) 0.2 uL; Eosinophils % (auto) 3.2 % (0.0-7.0); Hematocrit 38.8 % (41.0-53.0); Hemoglobin 12.9 g/dL (13.5-17.5); Lymphocytes # (auto) 0.9 uL; Lymphocytes % (auto) 15.8 % (10.0-50.0); Mean Corpuscular Hemoglobin 33.9 pg (28.0-32.0); Mean Corpuscular Hgb Conc. 33.3 g/dL (32.0-36.0); Monocytes # (auto) 0.6 uL; Neutrophils # (auto) 3.8 uL; Neutrophils % (auto) 69.2 % (37.0-80.0); Nucleated Red Blood Cells % 0.1 %; Platelet Count (auto) 223 10^3/uL (140-450); Red Cell Distribution Width 15.2 % (11.8-14.3); White Blood Cell 5.6 10^3/uL (4.4-10.8)
--- NOTE | 2019-06-04 08:28 | NUR ---
CHANGED RATE ON HEPARIN DRIP FROM 1100 UNITS/HR TO 1300 UNITS/HR PER LATEST PTT AND HEPARIN DRIP PROTOCOL. NO SIGNS OF BLEEDING.
[2019-06-04] MEDS ORDERED: HEPARIN DRIP/D5W 100UNITS/ML 250 ML IV SCH (08:30)
--- NOTE | 2019-06-04 09:26 | NUR ---
SPOKE WITH DR LIVINGSTON, DR GAVE ORDER TO DC HEPARIN DRIP PER PHARMACY PROTOCOL AND TO KEEP HEPARIN DRIP AT 1000 UNITS/HR NON TITRATABLE WITH DAILY PTT'S. NEW ORDER FOR PLATELET FUNCTION TEST ON THURSDAY AND CXR NOW.
[2019-06-04] MEDS ORDERED: RANOLAZINE ER 500 MG TAB PO SCH (10:00)
[2019-06-04] MEDS ORDERED: OLMESARTAN MEDOXOMIL PO SCH (10:00)
[2019-06-04] MEDS ORDERED: LEVOTHYROXINE SODIUM 50 MCG TAB PO SCH (10:00)
[2019-06-04] MEDS: FUROSEMIDE 40 MG TAB PO SCH (10:11)
[2019-06-04] MEDS: POTASSIUM CHL 20 Meq TABLET PO SCH ×2 (10:12→20:04)
--- NOTE | 2019-06-04 10:28 | NUR ---
SCHEDULED AM MEDICATIONS GIVEN, NEIGHBOR AT BEDSIDE
--- NOTE | 2019-06-04 13:40 | NUR ---
DR LOVING AT BEDSIDE, EXAMINED AND SPOKE WITH PATIENT. VERIFIED LEVOTHYROXINE ORDER 75 MCG PO DAILY
[2019-06-04] MEDS: NITROGLYCERIN 50MG/250ML 250 ML IV SCH (14:45)
[2019-06-04] MEDS: LEVOTHYROXINE SODIUM 25 MCG TAB PO SCH (14:51)
--- NOTE | 2019-06-04 15:00 | NUR ---
FRIENDS AT BEDSIDE, BACK TO BED AFTER EATING LUNCH IN CHAIR WITH STANDBY ASSIST, CALL LIGHT IN REACH.
[2019-06-04] MEDS: HEPARIN DRIP/D5W 100UNITS/ML 250 ML IV SCH (17:26)
--- NOTE | 2019-06-04 17:30 | NUR ---
OOB WITH STANDBY ASSIST TO TOILET, LARGE BM NOTED.
--- NOTE | 2019-06-04 19:03 | NUR ---
REPORT GIVEN TO YASSINE ZEPEDA
--- NOTE | 2019-06-04 19:30 | NUR ---
OPENING NOTE: ASSUMED CARE FROM ROWENA ZEPEDA. A&OX4. APPROPRIATE. INTERMITTENTLY ATRIAL PACED, HR 60-70s. SBP 100-110s ON FIXED NITRO GTT RATE. +PULSES, REPORTS FEET FEEL MORE COLD THAN LAST NIGHT. LS CTA, DIMINISHED TO BASES. EVEN AND UNLABORED BREATHING, SpO2>95% ON 2L O2 VIA NC. INTERMITTENT NON PRODUCTIVE COUGH. ABD SOFT. NORMOACTIVE. BS. LBM 10/5. TOLERATING 100 OF MEALS, DENIES NAUSEA/VOMITING. VOIDS VIA URINAL DENIES DYSURIA, HESITANCY, OR INCONTINENCE. RIGHT GROIN ANGIO SITE, REMOVED TEGADERM AND GAUZE; NO HEMATOMA, ECCHYMOSIS, OR ACTIVE BLEEDING NOTED. SKIN OTHERWISE INTACT. RIGHT FOREARM 20 G PIV, CDI, FLUSHES WELL BUT WITHOUT BLOOD RETURN, DENIES PAIN, INFUSING NITRO GTT. LEFT FOREARM 20 G PIV, CDI, PATIENT WITH BLOOD RETURN, DENIES PAIN, INFUSING HEPARIN GTT. DENIES PAIN, CHEST PAIN, SOB, HEADACHE, DIZZINESS, N/V, NUMBNESS AND TINGLING. REINFORCED POC. MAINTAINED PATIENT SAFETY: BED LOCKED AND IN THE LOWEST POSITION, BED ALARM ON, CALL LIGHT WITHIN REACH. ENCOURAGED PATIENT VERBALIZE QUESTIONS AND CONCERNS. PATIENT VERBALIZED UNDERSTANDING OF POC. WILL CONT CARE.
--- NOTE | 2019-06-04 19:45 | NUR ---
CABG EDUCATION: PATIENT STATES THAT HE COMES FROM A FAMILY OF MEDICAL PROVIDERS AND THAT HE FEELS THAT HE IS IN "THE BEST CARE" AND DOES NOT WANT TO WATCH THE CABG VIDEO AT THIS TIME. DEPUTY JUVENILE OFFICER EXPLAINED SOME OF THE EXPECTATIONS AFTER SURGERY INCLUDING MECHANICAL VENTILATION, CHEST TUBES, PAIN, AND AMBULATION. INQUIRED IF PATIENT WILL HAVE SUPPORT AFTER SURGERY AND HE STATES HIS DAUGHTER WILL BE IN TOWN UNTIL NEXT THURSDAY. HOWEVER, HE STATES HE'LL "BE FINE" ON HIS OWN. DEPUTY JUVENILE OFFICER ENCOURAGED SUPPORT SYSTEM POST-OPERATIVELY TO ENCOURAGE OPTIMIZATION FOR WELL BEING. PATIENT WILL NEED REINFORCEMENT AND CONTINUED EDUCATION.
[2019-06-04] MEDS: TEMAZEPAM 15 MG CAP PO PRN (20:04)
--- NOTE | 2019-06-04 20:04 | NUR ---
PATIENT REQUESTING TO GO TO SLEEP: SCHEDULED 2200 MEDS GIVEN EARLY. REPORTS INSOMNIA, RESTORIL PRN GIVEN. EXPLAINED POC, AND TIME FOR AM LAB DRAWS AND XRAY. VERBALIZED UNDERSTANDING. WILL CONT CARE.
--- NOTE | 2019-06-04 21:14 | NUR ---
ROUNDED: SLEEPING, EVEN AND UNLABORED BREATHING. VSS.
--- NOTE | 2019-06-04 22:18 | NUR ---
ROUNDED: SLEEPING, EVEN AND UNLABORED BREATHING. VSS. WILL CONT CARE
--- NOTE | 2019-06-04 23:50 | NUR ---
PIV ASSESSMENT: RIGHT FOREARM 20 G PIV, CDI, AND FLUSHES EASILY BUT NO BLOOD RETURN. NO S/S OF INFILTRATION, PHLEBITIS, OR PAIN. LEFT FOREARM 20 G PIV, CDI, AND PATENT WITH BLOOD RETURN. NO S/S OF INFILTRATION, PHLEBITIS, OR PAIN Addendum: 06/05/19 at 0239 by Laurel Salvador RN RN MISTAKEN ENTRY - DUPLICATE
--- NOTE | 2019-06-04 23:50 | NUR ---
ROUNDED: SLEEPING, EVEN AND UNLABORED BREATHING, VSS. WILL CONT CARE
--- NOTE | 2019-06-04 23:56 | NUR ---
PIV ASSESSMENT: RIGHT FOREARM 20 G PIV, CDI, AND FLUSHES EASILY BUT NO BLOOD RETURN. NO S/S OF INFILTRATION, PHLEBITIS, OR PAIN. LEFT FOREARM 20 G PIV, CDI, AND PATENT WITH BLOOD RETURN. NO S/S OF INFILTRATION, PHLEBITIS, OR PAIN
[2019-06-05] VITALS (76 sets, daily range): BP systolic 77–120; BP diastolic 36–82
--- NOTE | 2019-06-05 01:00 | NUR ---
ROUNDED: SLEEPING, EVEN AND UNLABORED BREATHING, VSS. WILL CONT CARE
--- NOTE | 2019-06-05 02:33 | NUR ---
BP READINGS IN MID TO HIGH 80s, PATIENT SLEEPING ON SIDE WITH ARMS CURLED UP
[2019-06-05 04:52] LABS: Potassium 4.3 mmol/L (3.5-5.1)
[2019-06-05 05:02] LABS: Albumin 2.9 g/dL (3.4-5.0); BUN/Creatinine Ratio 22.3; Bilirubin, Total 0.4 mg/dL (0.2-1.0); Calcium 8.8 mg/dL (8.5-10.1); Total Protein 5.8 g/dL (6.4-8.2)
--- NOTE | 2019-06-05 05:10 | NUR ---
INQUIRED WITH LAB ABOUT OUTSTANDING CBC - PER LAB, SHE WILL SEND LINE SERVICE ATTENDANT
[2019-06-05] MEDS ORDERED: ALBUMIN 5% 250 ML IV ONE (06:00)
--- NOTE | 2019-06-05 06:30 | NUR ---
BM X1
--- NOTE | 2019-06-05 06:30 | NUR ---
CLOSING NOTE: REMAINS GROSSLY UNCHANGED FROM PREVIOUS ASSESSMENT. AWAKE, RESTING IN BED. VSS. WILL CONT CARE
[2019-06-05] MEDS: NITROGLYCERIN 50MG/250ML 250 ML IV SCH (06:43)
[2019-06-05] MEDS: LEVOTHYROXINE SODIUM 25 MCG TAB PO SCH (06:43)
--- NOTE | 2019-06-05 07:30 | NUR ---
REPORT AND CARE ENDORSED TO ROWENA ZEPEDA
--- NOTE | 2019-06-05 07:30 | NUR ---
REPORT RECEIVED, ASSUMING CARE. PATIENT SITTING UP IN BED AWAKE ALERT ON CELL PHONE. CALL LIGHT IN REACH.
--- NOTE | 2019-06-05 09:12 | NUR ---
SPOKE WITH DR GITA VANESSA PATIENT IS STABLE.
[2019-06-05] MEDS: FUROSEMIDE 40 MG TAB PO SCH (10:15)
[2019-06-05] MEDS: POTASSIUM CHL 20 Meq TABLET PO SCH ×2 (10:15→21:29)
--- NOTE | 2019-06-05 10:36 | NUR ---
LAB AT BEDSIDE DRAWING PLATELET FUNCTION ASSAY
[2019-06-05 11:02] LABS: Basophils # (auto) 0 uL; Basophils % (auto) 0.8 % (0.0-2.0); Eosinophils # (auto) 0.2 uL; Eosinophils % (auto) 3.4 % (0.0-7.0); Hematocrit 38.6 % (41.0-53.0); Hemoglobin 13.1 g/dL (13.5-17.5); Lymphocytes # (auto) 0.9 uL; Lymphocytes % (auto) 16.3 % (10.0-50.0); Mean Corpuscular Hemoglobin 33.3 pg (28.0-32.0); Mean Corpuscular Hgb Conc. 33.9 g/dL (32.0-36.0); Mean Corpuscular Volume 98.3 fL (80.0-100.0); Monocytes # (auto) 0.4 uL; Monocytes % (auto) 6.5 % (0.0-12.0); Neutrophils # (auto) 4.2 uL; Nucleated Red Blood Cells % 0.1 %; Platelet Count (auto) 216 10^3/uL (140-450); Red Blood Cells 3.92 10^6/uL (4.5-5.90); Red Cell Distribution Width 14.5 % (11.8-14.3); White Blood Cell 5.8 10^3/uL (4.4-10.8)
--- NOTE | 2019-06-05 11:55 | NUR ---
DR LOVING AT BEDSIDE, DR SPOKE WITH AND EXAMINED PATIENT. DR AWARE PATIENT JUST WENT FOR WALK AROUND NURSING STATION X 15 LAPS AND TOLERATED VERY WELL ON PORTABLE MISSILE AND MISSILE CHECKOUT TECHNICIAN. DR ORDERED PULMONARY FUNCTION TEST. RT AWARE.
--- NOTE | 2019-06-05 13:50 | NUR ---
RT NOTE: RT BEDSIDE TO PERFORM SPIROMETRY, UNABLE TO GET BEDSIDE PFT MACHINE TO WORK (NOT PICKING UP PT. BREATH, PT. GIVING GOOD EFFORT) DUANE GUAMAN AWARE. WILL TAKE MACHINE BACK TO RT. DEPT TO TRY AND TROUBLE SHOOT.
--- NOTE | 2019-06-05 14:30 | NUR ---
VEIN MAPPING BEING COMPLETED AT THIS TIME BY TECH
--- NOTE | 2019-06-05 17:42 | NUR ---
SPOKE WITH ONLINE RADIOLOGY COMPANY, STATED RESULTS OF VEIN MAPPING SHOWING SAPHENOUS VEIN THROMBOSES IN BLE, WILL WAIT FOR REPORT TO BE AVAILABLE IN [facility] TO NOTIFY DR LIVINGSTON/DR LOVING.
--- NOTE | 2019-06-05 17:52 | NUR ---
SPOKE WITH DR LIVINGSTON AND HE IS AWARE OF VEIN MAPPING RESULTS, DR LOVING PAGED.
--- NOTE | 2019-06-05 17:55 | NUR ---
DR LOVING AWARE OF VEIN MAPPING RESULTS
[2019-06-05] MEDS: HEPARIN DRIP/D5W 100UNITS/ML 250 ML IV SCH (18:38)
--- NOTE | 2019-06-05 19:25 | NUR ---
RT NOTE: BEDSIDE SPIROMETRY ORDERED AND PERFORMED WITHOUT INCIDENT. RN NOTIFIED AND RESULTS PLACED IN HARD CHART.
--- NOTE | 2019-06-05 19:30 | NUR ---
Opening Shift Note Assumed care of pt at this time. Pt alert and oriented times four, and very pleasant. Full assessment done see interventions. Pt able to get up and use the restroom, educated pt to use the call light when getting out of bed, so this RN can help. pt verbalized understanding. Call light within reach. Pt denies pain at this time. 20g IV to right forearm, CDI site benign. Left FA 20 g, dressing CDI, site benign, flushes without problems. See IV spreadsheet for infusion details. Bed locked in lowest position. Call light within reach.
[2019-06-06] VITALS (81 sets, daily range): BP systolic 89–129; BP diastolic 41–75
--- NOTE | 2019-06-06 | NUR ---
ROUNDED: SLEEPING, EVEN AND UNLABORED BREATHING, VSS. WILL CONT CARE
--- NOTE | 2019-06-06 07:14 | NUR ---
End of Shift Note Pt slept throughout the night, no complaints of pain or distress. Report given to DUANE Sahu to assume care.
[2019-06-06] MEDS: LEVOTHYROXINE SODIUM 25 MCG TAB PO SCH (07:20)
--- NOTE | 2019-06-06 07:25 | NUR ---
OPENING SHIFT NOTE Report received from Doris ZEPEDA, care assumed. Physical assessment performed. Patient alert and oriented. Patient ambulating around room with standby assistance. Afebrile. No distress or pain noted. Sinus rhythm, paced noted on bedside monitor. Patient on Heparin and Nitro gtt. Lungs clear anteriorly, pt on 2 L nasal cannula, denies shortness of breath. See skin assessment. Bed locked in lowest position, call light within reach. Patient instructed to call for assistance PRN, patient verbalized understanding.
--- NOTE | 2019-06-06 07:45 | NUR ---
ELIMINATION Patient urinated clear yellow urine in urinal at bedside. Patient returned to bed, resting with call light within reach. Will continue to monitor.
[2019-06-06 07:58] LABS: Basophils # (auto) 0 uL; Basophils % (auto) 0.6 % (0.0-2.0); Eosinophils # (auto) 0.2 uL; Eosinophils % (auto) 3.4 % (0.0-7.0); Hematocrit 38.4 % (41.0-53.0); Hemoglobin 13.1 g/dL (13.5-17.5); Lymphocytes # (auto) 0.9 uL; Lymphocytes % (auto) 16.1 % (10.0-50.0); Mean Corpuscular Hemoglobin 33.3 pg (28.0-32.0); Mean Corpuscular Hgb Conc. 34.2 g/dL (32.0-36.0); Mean Corpuscular Volume 97.6 fL (80.0-100.0); Monocytes # (auto) 0.5 uL; Monocytes % (auto) 8.1 % (0.0-12.0); Neutrophils # (auto) 4.2 uL; Neutrophils % (auto) 71.8 % (37.0-80.0); Platelet Count (auto) 232 10^3/uL (140-450); Red Blood Cells 3.94 10^6/uL (4.5-5.90); Red Cell Distribution Width 14.5 % (11.8-14.3); White Blood Cell 5.9 10^3/uL (4.4-10.8)
[2019-06-06 08:08] LABS: BUN/Creatinine Ratio 18.7; Potassium 4.3 mmol/L (3.5-5.1)
[2019-06-06 08:56] LABS: INR 1.03 (0.9-1.15); Partial Thromboplastin Time 30.8 sec (23.64-32.05)
--- NOTE | 2019-06-06 09:30 | NUR ---
HEPARIN GTT PTT 30.8, per protocol rate increased by 300 units/hr. 5,000 unit bolus given.
--- NOTE | 2019-06-06 09:32 | NUR ---
FAMILY AT BEDSIDE Patient daughter Stephania and son Mark at bedside. Family has been updated on plan of care. All questions and concerns addressed.
--- NOTE | 2019-06-06 10:00 | NUR ---
NPO Patient instructed to stay NPO for possible open hearth furnace laborer procedure today. Patient verbalized understanding.
[2019-06-06] MEDS: FUROSEMIDE 40 MG TAB PO SCH (10:14)
[2019-06-06] MEDS: POTASSIUM CHL 20 Meq TABLET PO SCH ×2 (10:14→22:00)
--- NOTE | 2019-06-06 10:33 | NUR ---
MD VISIT at bedside assessing patient and reviewing chart. MD speaking with about IABP placement for today.
[2019-06-06] MEDS ORDERED: HEPARIN DRIP/D5W 100UNITS/ML 250 ML IV SCH ×2 (11:45→18:14)
--- NOTE | 2019-06-06 11:46 | NUR ---
HEPARIN GTT Spoke with regarding heparing gtt and titrations. stated he would like to keep the gtt rate 800 units/hr. Rate changed to match order. PTT to be drawn at 1530 at original rate change time.
--- NOTE | 2019-06-06 12:06 | NUR ---
NUTRITION ASSESSMENT NOTES Please refer to link notes of nutrition screen form filed under the intervention section of the plan of care for further details. Est. Needs: 1950 kcal to 2350 kcal (25-30 kcal/kgBW), 79 gms to 95 gms pro (1.0-1.2 gms/kgBW). Will continue to monitor pertinent labs and reassess nutrient need prn Thank you. Addendum: 06/06/19 at [address] Amended: Links added.
[2019-06-06] MEDS: NITROGLYCERIN 50MG/250ML 250 ML IV SCH (12:15)
--- NOTE | 2019-06-06 12:53 | NUR ---
ELIMINATION/CARES Patient ambulated to toilet. Patient had soft, brown bowel movement. Shana care performed. Patient ambulated back to bed. Complete linen change performed. Patient resting in bed with call light within reach. Family at bedside. Will continue to monitor.
--- NOTE | 2019-06-06 13:00 | NUR ---
CEMENT MIXER DRIVER US TECH AND RADIOLOGIST AT BEDSIDE FOR VEIN MAPPING.
--- NOTE | 2019-06-06 15:30 | NUR ---
RT NOTIFIED OF PFT Spoke with German RAMOS regarding orders for pulmonary function test for patient. [facility] business department chair assigned RT for tonight to preform test.
--- NOTE | 2019-06-06 16:04 | NUR ---
PREOP VIDEO Patient given education on surgery for tomorrow. Patient refusing to watch preop video at this time. Patient stated he does not want to watch it. Will educate patients kids when present at bedside.
[2019-06-06 16:16] LABS: INR 1.02 (0.9-1.15); Partial Thromboplastin Time 29.5 sec (23.64-32.05)
--- NOTE | 2019-06-06 17:00 | NUR ---
FAMILY AT BEDSIDE Patient son and daughter at bedside. Family also refusing to watch video about procedure.
--- NOTE | 2019-06-06 17:26 | NUR ---
UPDATE Orders for preop labs and medications obtained from . He is aware has not placed IABP today and has plans for procedure tomorrow AM. No further orders obtain.
--- NOTE | 2019-06-06 18:09 | NUR ---
MD VISIT at bedside speaking with patient and family regarding plan of care. MD stated that due to patient being high risk, MD wants to transfer patient to a higher level of care for CABG procedure. is aware that CABG will be cancelled for tomorrow. Patient and family are aware. wants to D/C nitroglycerin gtt and change heparin gtt back to titrating according to protocol. Transfer paper signed and placed in chart.
--- NOTE | 2019-06-06 18:28 | NUR ---
IV GTTS Nitroglycerin gtt titrated off per MD order. PTT 29.5, per protocol rate increased by 300 units/hr. 5,000 unit bolus given.
--- NOTE | 2019-06-06 19:02 | NUR ---
REPORT Report given to Doris ZEPEDA, care endorsed.
--- NOTE | 2019-06-06 19:40 | NUR ---
CALL RECEIVED FROM DR. LOVING. NEW ORDERS RECEIVED THAT PT IS GOING TO [facility] AT 0700 06/07 TO HAVE AN IABP PLACED AND THEN TRANSFER TO [facility] FOR CABG BY DR. ALEJANDRO.
--- NOTE | 2019-06-06 19:50 | NUR ---
NO ANSWER AT FRONT DESK CLERK. CONSUMER MARKETING ANALYST CALLED AND INFORMED OF IABP PLACEMENT IN AM.
--- NOTE | 2019-06-06 20:20 | NUR ---
FAXED OVER PT INFORMATION; FACE SHEET, PROGRESS NOTES AND H&P REQUESTED BY JHONATHAN FROM [facility].
[2019-06-06] MEDS ORDERED: ASCORBIC ACID 500 MG TAB PO ONE (22:00)
[2019-06-06] MEDS ORDERED: MUPIROCIN 2% OINT 15gm or 22gm EACHNOSTRI ONE (22:00)
--- NOTE | 2019-06-06 23:33 | NUR ---
SUSY FROM [facility] CALLED TO INFORM OF BED ASSIGNMENT; SICU BED 7. DR ALEJANDRO REQUESTING PT BE TRANSFERRED BY [facility] AT THE LATEST AFTER IABP. ALSO REQUESTING COPY OF ANGIOGRAM TO BE SENT WITH PT. WILL INPUT ORDER FOR IMAGE COPY.
[2019-06-07] VITALS (28 sets, daily range): BP systolic 98–132; BP diastolic 45–75
[2019-06-07 00:37] LABS: INR 1.04 (0.9-1.15); Partial Thromboplastin Time 36.7 sec (23.64-32.05)
--- NOTE | 2019-06-07 01:00 | NUR ---
PTT AT 36.7, ACCORDING TO HEPARIN GTT PROTOCOL, TO INCREASE BY 200 UNITS. GTT NOW RUNNING AT 1300UNITS/HR. FABIENNE CLARIFIED TO KEEP HEPARIN GTT ON AND FOLLOW PROTOCOL.
[2019-06-07] MEDS ORDERED: CHLORHEXIDINE 4% TOPICAL soln 118ml TOP ONE (04:00)
--- NOTE | 2019-06-07 05:59 | NUR ---
CALLED [facility] TO PUT PT ON WILL CALL FOR BUSINESS SOLUTIONS CONSULTANT TO TRANSFER TO [place].
[2019-06-07] MEDS ORDERED: VANCOMYCIN 1GM/250ML 250 ML IV ONE (06:00)
[2019-06-07] MEDS ORDERED: ACCU-CHEK COMFORT CURVE STRIP VI ONE (06:00)
[2019-06-07 06:16] LABS: Basophils # (auto) 0 uL; Basophils % (auto) 0.5 % (0.0-2.0); Eosinophils # (auto) 0.2 uL; Eosinophils % (auto) 3.7 % (0.0-7.0); Hematocrit 39.3 % (41.0-53.0); Hemoglobin 13.4 g/dL (13.5-17.5); Lymphocytes # (auto) 1.1 uL; Lymphocytes % (auto) 20.2 % (10.0-50.0); Mean Corpuscular Hemoglobin 33.2 pg (28.0-32.0); Mean Corpuscular Hgb Conc. 34.1 g/dL (32.0-36.0); Mean Corpuscular Volume 97.1 fL (80.0-100.0); Monocytes # (auto) 0.4 uL; Monocytes % (auto) 7.6 % (0.0-12.0); Neutrophils # (auto) 3.8 uL; Nucleated Red Blood Cells % 0.1 %; Platelet Count (auto) 222 10^3/uL (140-450); Red Blood Cells 4.05 10^6/uL (4.5-5.90); Red Cell Distribution Width 14.2 % (11.8-14.3); White Blood Cell 5.6 10^3/uL (4.4-10.8)
[2019-06-07 06:18] LABS: INR 1.03 (0.9-1.15); Partial Thromboplastin Time 42.7 sec (23.64-32.05)
[2019-06-07 06:27] LABS: Albumin 3.2 g/dL (3.4-5.0); Potassium 4.6 mmol/L (3.5-5.1)
[2019-06-07 06:30] LABS: BUN/Creatinine Ratio 18.9; Bilirubin, Total 0.6 mg/dL (0.2-1.0); Total Protein 6.6 g/dL (6.4-8.2)
--- NOTE | 2019-06-07 06:30 | NUR ---
HEPARIN GTT INCREASED TO 1500 UNITS/HR ACCORDING TO PTT LEVEL AND HEPARIN GTT PROTOCOL.
--- NOTE | 2019-06-07 06:48 | NUR ---
PROGRESSIVE CARE MANAGER TEAM HERE TO TAKE PT FOR IABP
[2019-06-07] MEDS ORDERED: LIDOCAINE 2%HCL (LOCAL ANESTH.) INJ 20ML MDV ONE (06:57)
[2019-06-07] MEDS ORDERED: IOHEXOL 350 MG/ML 100ML IJ ONE (06:57)
[2019-06-07] MEDS ORDERED: ceFAZolin 1GM 2 GM in D5W 5% 50 ML IV ONE (07:00)
[2019-06-07] MEDS ORDERED: fentaNYL CITRATE 100 MCG/2 ML VL ONE (07:06)
[2019-06-07] MEDS ORDERED: MIDAZOLAM HCL 1MG/1ML-2 ML VIAL ONE (07:06)
--- NOTE | 2019-06-07 07:19 | NUR ---
REPORT GIVEN TO DUANE FULTON TO ASSUME CARE.
--- NOTE | 2019-06-07 07:44 | NUR ---
SOCIAL SERVICE Left message for Ashley DELONG regarding need for transfer approval for patient to [place], to fax and communicate with Medicare to get approval for transfer.
[2019-06-07] MEDS ORDERED: NOREPINEPHRINE 8 MG/250ML KIT 250 ML IV ONE (08:00)
[2019-06-07] MEDS ORDERED: HEPARIN 30000 UNITS in SODIUM CHLORIDE 0.9% 1000 ML IV ONE (08:00)
[2019-06-07] MEDS ORDERED: AMINOCAPROIC ACID 10 GM in SODIUM CHL 0.9% 100 ML IV ONE (08:00)
[2019-06-07] MEDS ORDERED: PHENYLEPHRINE INJ 20 MG in SODIUM CHL 0.9% 250 ML IV ONE (08:00)
[2019-06-07] MEDS ORDERED: AMINOCAPROIC ACID 5 GM in SODIUM CHL 0.9% 250 ML IV ONE (08:00)
[2019-06-07] MEDS ORDERED: InsuLIN R (HUMAN) 100 UNITS in SODIUM CHL 0.9% 99 ML IV ONE (08:00)
[2019-06-07] MEDS ORDERED: EPINEPHrine HCL 4 MG in D5W 5% 250 ML IV ONE (08:00)
--- NOTE | 2019-06-07 08:08 | NUR ---
CASE MANAGEMENT Spoke with Kay Toro regarding need for transfer to [place] today. Faxed over paperwork.
--- NOTE | 2019-06-07 08:09 | NUR ---
PT RETURN FROM PLATE STRAIGHTENER Patient return to room. patient alert and oriented. Afebrile. Physical assessment performed. Patient denies distress at this time. Lungs clear. Patient on 2 L nasal cannula, oxygen saturation 98%. Right groin IABP placed. Pulses noted with Doppler dorsalis pedis and posterior tibialis. Left radial pulse palpable. Vitals stable at this time. patient on heparin gtt 1500 units. Left groin site intact, no hematoma or bleeding noted. Dressing is clean and secure. Patient denies pain at this time. Patient placed in reverse Trendelenburg, call light within reach. Will continue to monitor.
--- NOTE | 2019-06-07 08:34 | NUR ---
I faxed Medicare PCS form to [facility].
--- NOTE | 2019-06-07 08:47 | NUR ---
I called [facility] and spoke with Karrie-ETA is 20 minutes-I informed patient's primary nurse.
--- NOTE | 2019-06-07 08:52 | NUR ---
Bradshaw catheter insertion Patient assessed and determined to be in need of bradshaw catheter. Order obtained from Armond TRAVIS. Patient educated on catheter and reason for insertion. All questions answered. Bradshaw catheter 16 guage [place] inserted with clean sterile technique. Patient tolerated well. Urine sample sent to lab.
--- NOTE | 2019-06-07 09:03 | NUR ---
Assessment Pt is an 88 yr old male alert and oriented. Pt stated that he is waiting to get open heart surgery. When asked by SW, pt expressed a very positive optimistic outlook and expressed that he was ready to go with the procedure. Prior to admit, pt lived alone, is ambulatory and independent with ADL's, cooking and cleaning. Pt's family friend, Evita, is his emergency contact at [phone]. Pt currently doesn't own any DME and not receiving HH, hospice or dialysis services. Pt hopes to return home to heal after surgery. Pt's primary is Dr Leahy. Pt stated that he has an advanced directive with his chlorobutadiene scrubber operator and that his family members can bring a copy of it. Pt stated that he has several friends that he should be able to call for transportation home. Further d/c needs will be assessed once closer to d/c. Addendum: 06/07/19 at 0909 by AMMON DELONG Amended: Links added.
[2019-06-07 09:05] LABS: Urine Bacteria NONE SEEN /hpf (None Seen); Urine Blood Negative /uL (Negative); Urine Hyaline Cast FEW /lpf (0 - 2); Urine Specific Gravity 1.017 (1.001-1.035); Urine WBC 1 /hpf (0 - 3)
[2019-06-07] MEDS: LEVOTHYROXINE SODIUM 25 MCG TAB PO SCH (09:09)
--- NOTE | 2019-06-07 09:42 | NUR ---
REPORT Report called to Chuyita ZEPEDA at [facility]. Stephania patient Daughter notified of transport.
--- NOTE | 2019-06-07 09:45 | NUR ---
RADIOLOGY CXR at bedside to confirm IABP placement. notified of results.
--- NOTE | 2019-06-07 09:50 | NUR ---
[facility] AT BEDSIDE FOR MARKETING INTERN
[2019-06-07] MEDS ORDERED: CHLORHEXIDINE 0.12% ORAL rinse 473ML MT SCH (10:00)
[2019-06-07] MEDS ORDERED: NITROGLYCERIN 0.4MG/HR TOPICAL PATCH TD SCH (10:00)
--- NOTE | 2019-06-07 10:13 | NUR ---
DEPARTURE Patient transferred to [facility] CCT unit via [facility] with RN, job change crew member, and emt. Patient transport with portable monitor, oxygen 2 L nasal cannula, and IABP left groin. Vitals stable. Patient secured in rig. No distress noted. Patient educated on follow up needs post discharge, all personal belongings with patient. notified of departure.
--- NOTE | 2019-06-07 12:00 | NUR ---
ARRIVAL TO [facility] Patient arrived to SICU 7. Patient connected to monitors, Chuyita RN at bedside. Care endorsed, IABP exchanged. Vitals stable. Report given to attending. notified of patients arrival.
== END 2019-06-07 10:05 | disposition short-term general hospital (02) | DRG 270 ==
LOC: CATH 08:35 → ICU WEST 14:50
PROVIDERS: ADMIT Internal Medicine Cardiovascular Disease; ATTEND Internal Medicine Cardiovascular Disease
PROC: B3181ZZ Fluoroscopy of Bilateral Internal Carotid Arteries using Low Osmolar Contrast (ICD-10-PCS; 2019-06-02)
PROC: B31C1ZZ Fluoroscopy of Bilateral External Carotid Arteries using Low Osmolar Contrast (ICD-10-PCS; 2019-06-02)
PROC: B3151ZZ Fluoroscopy of Bilateral Common Carotid Arteries using Low Osmolar Contrast (ICD-10-PCS; 2019-06-02)
PROC: 4A023N7 Measurement of Cardiac Sampling and Pressure, Left Heart, Percutaneous Approach (ICD-10-PCS; 2019-06-02)
PROC: B2111ZZ Fluoroscopy of Multiple Coronary Arteries using Low Osmolar Contrast (ICD-10-PCS; 2019-06-02)
PROC: B2151ZZ Fluoroscopy of Left Heart using Low Osmolar Contrast (ICD-10-PCS; 2019-06-02)
PROC: B41F1ZZ Fluoroscopy of Right Lower Extremity Arteries using Low Osmolar Contrast (ICD-10-PCS; 2019-06-02)
PROC: 5A02210 Assistance with Cardiac Output using Balloon Pump, Continuous (ICD-10-PCS; principal; 2019-06-07)
DX: I25.110 Atherosclerotic heart disease of native coronary artery with unstable angina pectoris (principal); J96.01 Acute respiratory failure with hypoxia; J98.11 Atelectasis; I50.22 Chronic systolic (congestive) heart failure; E44.0 Moderate protein-calorie malnutrition; I25.5 Ischemic cardiomyopathy; I49.5 Sick sinus syndrome; G62.9 Polyneuropathy, unspecified; H35.00 Unspecified background retinopathy; E78.5 Hyperlipidemia, unspecified; I11.0 Hypertensive heart disease with heart failure; Z72.0 Tobacco use; Z95.0 Presence of cardiac pacemaker; Z95.1 Presence of aortocoronary bypass graft; Z95.5 Presence of coronary angioplasty implant and graft; Z79.82 Long term (current) use of aspirin; Z79.02 Long term (current) use of antithrombotics/antiplatelets; Z86.73 Personal history of transient ischemic attack (TIA), and cerebral infarction without residual deficits; Z68.24 Body mass index [BMI] 24.0-24.9, adult
CPT/HCPCS: 33967; 36223; 36224; 36227; 36415; 36600; 71045; 75710; 80048; 80053; 81001; 82805; 85025; 85576; 85610; 85730; 86850; 86900; 86901; 86920; 87081; 93306; 93458; 93886; 93970; 99152; G0378; J0690; J1644; J1815; J2250; J7060

== ENCOUNTER 2019-07-02 21:40 | Inpatient (IN) | payer MEDICARE, OTHER ==
[~2019-07-02] VITALS: Ht 180.3 cm; Wt 84.4 kg
[~2019-07-02 21:40] MED LIST changes: +LEVO25TA6 PO
[2019-07-03 01:19] LABS: Albumin 2.6 g/dL (3.4-5.0); Calcium 7.9 mg/dL (8.5-10.1); Potassium 3.7 mmol/L (3.5-5.1)
[2019-07-03 01:24] LABS: Bilirubin, Total 0.7 mg/dL (0.2-1.0); Lactic Acid w/Reflex 2.3 mmol/L (0.4-2.0); Total Protein 5.4 g/dL (6.4-8.2)
[2019-07-03 01:55] LABS: Basophils # (auto) 0 uL; Basophils % (auto) 0.5 % (0.0-2.0); Eosinophils # (auto) 0.3 uL; Eosinophils % (auto) 4.1 % (0.0-7.0); Hematocrit 30.7 % (41.0-53.0); Hemoglobin 10.3 g/dL (13.5-17.5); Lymphocytes # (auto) 0.8 uL; Lymphocytes % (auto) 13.2 % (10.0-50.0); Mean Corpuscular Hemoglobin 33.3 pg (28.0-32.0); Mean Corpuscular Hgb Conc. 33.6 g/dL (32.0-36.0); Mean Corpuscular Volume 99.2 fL (80.0-100.0); Monocytes # (auto) 0.7 uL; Monocytes % (auto) 11.7 % (0.0-12.0); Neutrophils # (auto) 4.4 uL; Neutrophils % (auto) 70.5 % (37.0-80.0); Platelet Count (auto) 210 10^3/uL (140-450); Red Blood Cells 3.09 10^6/uL (4.5-5.90); White Blood Cell 6.3 10^3/uL (4.4-10.8)
[2019-07-03 02:41] LABS: Urine Bacteria FEW /hpf (None Seen); Urine Blood Negative /uL (Negative); Urine Mucus FEW (None Seen); Urine Specific Gravity 1.029 (1.001-1.035); Urine WBC 2 /hpf (0 - 3)
[2019-07-03] MEDS ORDERED: FUROSEMIDE 40 MG/4 ML VIAL IV ONE (03:15)
[2019-07-03] MEDS ORDERED: ONDANSETRON HCL 4 MG/2 ML VIAL IV PRN (06:30)
[2019-07-03] MEDS ORDERED: ACETAMINOPHEN 500 MG TAB PO PRN (06:30)
[2019-07-03] MEDS ORDERED: HYDROcodone-ACET 5/325MG TAB PO PRN (07:00)
[2019-07-03] MEDS ORDERED: LEVOTHYROXINE SODIUM 50 MCG TAB PO SCH (07:00)
[2019-07-03 07:13] LABS: Basophils # (auto) 0 uL; Basophils % (auto) 0.7 % (0.0-2.0); Eosinophils # (auto) 0.3 uL; Eosinophils % (auto) 5.7 % (0.0-7.0); Hematocrit 32.1 % (41.0-53.0); Hemoglobin 10.4 g/dL (13.5-17.5); Lymphocytes # (auto) 0.6 uL; Lymphocytes % (auto) 10.7 % (10.0-50.0); Mean Corpuscular Hemoglobin 32.6 pg (28.0-32.0); Mean Corpuscular Hgb Conc. 32.6 g/dL (32.0-36.0); Mean Corpuscular Volume 100.2 fL (80.0-100.0); Monocytes # (auto) 0.8 uL; Monocytes % (auto) 13.2 % (0.0-12.0); Neutrophils % (auto) 69.7 % (37.0-80.0); Platelet Count (auto) 202 10^3/uL (140-450); Red Cell Distribution Width 17.2 % (11.8-14.3); White Blood Cell 5.8 10^3/uL (4.4-10.8)
[2019-07-03 07:40] LABS: BUN/Creatinine Ratio 15.2; Potassium 3.6 mmol/L (3.5-5.1)
[2019-07-03] MEDS: LEVOTHYROXINE SODIUM 25 MCG TAB PO SCH (07:57)
--- NOTE | 2019-07-03 08:30 | NUR ---
Tele admit from MARIA ELENA CHACKO admitted to tele after SBAR received. Patient is tele number 58 and running peaked p waves and occasional bundle branch blocks. Patient oriented to Adelina Centeno RN, unit, room, bed, and unit policies regarding patient care and visiting hours. Patient weighed by bed scale and encouraged to call if they need something. All questions and concerns addressed, patient verbalized understanding. No signs and symptoms of distress/SOB/pain noted. Will continue to monitor.
[2019-07-03] MEDS ORDERED: LEVO25TA6 PO (09:11)
[2019-07-03] MEDS ORDERED: CLOPIDOGREL BISULFATE 75 MG TAB PO ONE (10:00)
[2019-07-03] MEDS: FUROSEMIDE 40 MG/4 ML VIAL IV SCH (10:32)
[2019-07-03] MEDS: ASPirin-EC 81 mg tab PO SCH (10:32)
[2019-07-03] MEDS: DIGOXIN 0.125 MG TAB PO SCH (10:33)
[2019-07-03] MEDS: CARVEDILOL 3.125 MG TAB PO SCH ×2 (10:34→21:54)
[2019-07-03] MEDS: RAMIPRIL 2.5 MG CAP PO SCH (10:40)
[2019-07-03 13:00] VITALS: BP 88/54
--- NOTE | 2019-07-03 13:00 | NUR ---
Dressing applied. Optifoam dressing applied to sacrum and carmelina boots applied for pt comfort.
--- NOTE | 2019-07-03 13:15 | NUR ---
Pt BP low Spoke with , Dr. Leahy in regards to patient's blood pressure 88/54, MD aware new orders received, read back and verified. Patient is alert and oriented x 4 and asymptomatic. Will continue to monitor.
[2019-07-03 16:53] VITALS: BP 95/56
--- NOTE | 2019-07-03 19:00 | NUR ---
OPENING NOTE- NOC SHIFT PATIENT IS ALERT AND ORIENTED X4 AND ANSWERS IN COMPLETE SENTENCES. PATIENT IS SITTING UP IN BED, BED IS LOCKED AT LOWEST. PATIENT IS SPEAKING ON PHONE. RESPIRATIONS ARE EVEN AND UNLABORED. NO S/SX OF DISTRESS, SOB OR PAIN. BEDSIDE TABLE WITHIN REACH, CALL LIGHT WITHIN REACH. INSTRUCTED PATIENT TO CALL PRN; PATIENT VERBALIZES AND DEMONSTRATES UNDERSTANDING. WILL CONTINUE TO MONITOR Q1H AND PRR.
--- NOTE | 2019-07-03 19:20 | NUR ---
Endorsed care to NOC nurse.
[2019-07-03 20:00] VITALS: BP 89/53
[2019-07-03 22:00] VITALS: BP 89/53
[2019-07-04] VITALS (7 sets, daily range): BP systolic 100–109; BP diastolic 55–95
[2019-07-04 06:05] LABS: Basophils # (auto) 0 uL; Basophils % (auto) 0.3 % (0.0-2.0); Eosinophils # (auto) 0.3 uL; Eosinophils % (auto) 4.4 % (0.0-7.0); Hematocrit 29.8 % (41.0-53.0); Hemoglobin 9.9 g/dL (13.5-17.5); Lymphocytes # (auto) 0.5 uL; Lymphocytes % (auto) 7.6 % (10.0-50.0); Mean Corpuscular Hemoglobin 33.1 pg (28.0-32.0); Mean Corpuscular Hgb Conc. 33.2 g/dL (32.0-36.0); Mean Corpuscular Volume 99.7 fL (80.0-100.0); Monocytes # (auto) 0.6 uL; Monocytes % (auto) 9.2 % (0.0-12.0); Neutrophils # (auto) 5.1 uL; Neutrophils % (auto) 78.5 % (37.0-80.0); Nucleated Red Blood Cells % 0.1 %; Platelet Count (auto) 180 10^3/uL (140-450); Red Blood Cells 2.99 10^6/uL (4.5-5.90); Red Cell Distribution Width 17.7 % (11.8-14.3); White Blood Cell 6.5 10^3/uL (4.4-10.8)
[2019-07-04 06:22] LABS: Calcium 7.9 mg/dL (8.5-10.1); Potassium 3.6 mmol/L (3.5-5.1)
[2019-07-04 06:24] LABS: BUN/Creatinine Ratio 13.1
[2019-07-04] MEDS: LEVOTHYROXINE SODIUM 25 MCG TAB PO SCH (06:50)
--- NOTE | 2019-07-04 06:52 | NUR ---
UPDATED DR LOVING WITH PATIENT STATUS
[2019-07-04] MEDS: RAMIPRIL 2.5 MG CAP PO SCH ×2 (10:00→13:30)
[2019-07-04] MEDS: FUROSEMIDE 40 MG/4 ML VIAL IV SCH (10:00)
[2019-07-04] MEDS: CARVEDILOL 3.125 MG TAB PO SCH ×2 (10:21→21:12)
[2019-07-04] MEDS: ASPirin-EC 81 mg tab PO SCH (10:21)
[2019-07-04] MEDS: DIGOXIN 0.125 MG TAB PO SCH (10:22)
--- NOTE | 2019-07-04 11:00 | NUR ---
PT REFUSED P.T. BECAUSE OF FOOT PAIN.
--- NOTE | 2019-07-04 11:40 | NUR ---
WOUND CARE NOTE: IN TO SEE PATIENT AT THIS TIME PER WOUND CARE CONSULT REQUEST. PATIENT ADMITTED TO [facility] WITH DIAGNOSIS OF ACUTE ON CHRONIC SYSTOLIC HEART FAILURE. CURRENT CASI SCORE IS 17. PATIENT CAN SELF TURN/REPOSITION SELF. HE IS NOTED TO HAVE COMPROMISED CIRCULATION TO BLE WITH EDEMA, RESOLVING BLISTERS, ECCHYMOSIS AND CYANOSIS NOTED TO TOES OF BILATERAL FEET. PATIENT HAS BEEN HAVING LOTS OF ACUTE PAIN NOTED TO BILATERAL LOWER EXTREMITIES, ESPECIALLY THE LEFT AND RIGHT FEET. MOST WOUNDS ARE SCABBED, WITH SCANT DRAINAGE NOTED TO THE RIGHT # 1 TOE. WOUND PHOTOS WERE TAKEN UPON ADMIT, BY BEDSIDE NURSE. WOUND WAS CLEANSED AND DRESSED RIGHT # 1 TOE WITH TELFA AND KERLIX. ALL OTHER WOUNDS/BLISTERS ARE NOT OPEN. ELEVATED BOTH LEGS/FEET UP WITH PILLOWS TO HELP WITH EDEMA CONTROL. HE HAS CONSULT WITH DR. LOVING PENDTERESSA. SACRUM/BUTTOCKS IS NOTED TO HAVE MILD MASD WITH ABRASION NOTED. PATIENT HAS MOISTURE BARRIER CREAM AND OPTIFOAM GENTLE SACRAL DRESSING APPLIED. NO PRESSURE INJURIES NOTED, NO AREAS WITH NON BLANCHABLE SKIN NOTED. RECOMMEND: BID/PRN APPLICATION WITH MOISTURE BARRIER CREAM, OPTIFOAM GENTLE SACRAL DRESSING, EOD/PRN DRESSING CHANGE TO RIGHT FOOT/TOES, FREQUENT TURN SCHEDULE Q 2 HOURS, PRN CONDITION PERMITS, WITH PRESSURE REDISTRIBUTION USING PILLOWS/WEDGES, SKIN/WOUND CARE PLAN, DIETARY CONSULT, CONTINUED MONITORING BY WOUND CARE TEAM. Addendum: 07/04/19 at 1722 by Krystal Mendez RN Amended: Links added.
--- NOTE | 2019-07-04 13:45 | NUR ---
Dr. Leahy at Bedside Orders received and carried out.
--- NOTE | 2019-07-04 13:45 | NUR ---
No posie boots per Dr. Leahy
[2019-07-04] MEDS ORDERED: KETOROLAC TROMETH 30 MG/ML 1ML VIAL IV PRN (14:00)
[2019-07-04] MEDS: SPIRONOLACTONE 25 MG TAB PO SCH (18:24)
[2019-07-04] MEDS: MAGNESIUM OXIDE 400 MG TAB PO SCH (21:40)
[2019-07-05] VITALS (7 sets, daily range): BP systolic 104–111; BP diastolic 57–70
[2019-07-05] MEDS: SPIRONOLACTONE 25 MG TAB PO SCH ×2 (06:00→18:00)
[2019-07-05] MEDS: LEVOTHYROXINE SODIUM 25 MCG TAB PO SCH (06:32)
[2019-07-05] MEDS: LEVOTHYROXINE SODIUM 88 MCG TAB PO SCH (06:32)
--- NOTE | 2019-07-05 06:32 | NUR ---
PATIENT REFUSED ALDACTONE PATIENT STATES THAT HE BELIEVES THAT ALDACTONE MADE HIM FEEL DIZZY AND HAVE COLD SWEATS. PATIENT STATES THAT HE WILL TAKE IT UNTIL SPEAKING WITH DR LOVING. VS WITHIN NORMAL LIMITS.
--- NOTE | 2019-07-05 07:25 | NUR ---
ENDORSED PATIENT CARE TO DAY SHIFT NURSE DUANE LEACH. PATIENT IS ALERT AND ORIENTED X4. NO S/SX OF DISTRESS, SOB OR PAIN.
[2019-07-05] MEDS: FUROSEMIDE 40 MG/4 ML VIAL IV SCH (10:23)
[2019-07-05] MEDS: RAMIPRIL 2.5 MG CAP PO SCH (10:23)
[2019-07-05] MEDS: ASPirin-EC 81 mg tab PO SCH (10:24)
[2019-07-05] MEDS: MAGNESIUM OXIDE 400 MG TAB PO SCH ×2 (10:24→22:03)
[2019-07-05] MEDS: DIGOXIN 0.125 MG TAB PO SCH (10:24)
[2019-07-05] MEDS: CARVEDILOL 3.125 MG TAB PO SCH ×2 (10:25→21:45)
--- NOTE | 2019-07-05 12:53 | NUR ---
NUTRITION CONSULT/ASSESSMENT NOTES Please refer to link notes of nutrition screen form filed under the intervention section of the plan of care for further details. Est. Needs: 1800 kcal to 2250 kcal (25-30 kcal/kgBW), 90 gms to 108 gms pro (1.0-1.2 gms/kgBW). Will continue to monitor pertinent labs and reassess nutrient need prn Thank you for this consult. Addendum: 07/05/19 at [address] Amended: Links added.
--- NOTE | 2019-07-05 15:15 | NUR ---
Assessment Pt is an 88 yr old alert and oriented male. Prior to admit, pt lived at home with a "neighbor friend", age 30, who lives with him. Pt ambulates with the use of a walker. Pt's live in neighbor, helps to clean for him, another neighbor, Barbra, helps to cook for the pt occasionally. Otherwise, pt is independent with ADLs. Pt's son in [place], Mark Mullins, is his emergency contact at [phone]. Pt admitted due to cardiac arrest and stated that they put 3 stints in. Pt appears to be recovering well. Pt receives income and states that his personal injury attorney has his Advanced directive. Pt could benefit from for PT to help with leg strengthening. Pt's neighbor, Barbra, is planning to pick remover the pt upon d/c. Pt plans to d/c home upon medical clearance. Addendum: 07/05/19 at 1523 by AMMON SIMMONS Amended: Links added.
[2019-07-05] MEDS: TEMAZEPAM 15 MG CAP PO PRN (22:03)
--- NOTE | 2019-07-06 01:00 | NUR ---
PATIENT PRESENTS WITH PHLEGM PROVIDED SUCTION AT BEDSIDE. YONKER CONNECTED TO CONTINUOUS SUCTION LEFT AT BEDSIDE. PATIENT IS ABLE TO SUCTION HIS OWN SECRETIONS.
[2019-07-06 05:30] VITALS: BP 108/68
[2019-07-06] MEDS: SPIRONOLACTONE 25 MG TAB PO SCH ×2 (06:55→17:45)
[2019-07-06] MEDS: LEVOTHYROXINE SODIUM 88 MCG TAB PO SCH (06:55)
[2019-07-06] MEDS: LEVOTHYROXINE SODIUM 25 MCG TAB PO SCH (06:56)
[2019-07-06 09:07] VITALS: BP 106/60
[2019-07-06] MEDS: ASPirin-EC 81 mg tab PO SCH (09:35)
[2019-07-06] MEDS: FUROSEMIDE 40 MG/4 ML VIAL IV SCH (09:35)
[2019-07-06] MEDS: LEVOTHYROXINE SODIUM 50 MCG TAB PO SCH (09:36)
[2019-07-06] MEDS: MAGNESIUM OXIDE 400 MG TAB PO SCH ×2 (09:36→21:37)
[2019-07-06] MEDS: DIGOXIN 0.125 MG TAB PO SCH (09:36)
[2019-07-06] MEDS: CARVEDILOL 3.125 MG TAB PO SCH ×2 (09:37→21:37)
[2019-07-06] MEDS: RAMIPRIL 2.5 MG CAP PO SCH (10:00)
[2019-07-06 10:36] LABS: Calcium 8.6 mg/dL (8.5-10.1); Potassium 3.7 mmol/L (3.5-5.1)
[2019-07-06 10:39] LABS: BUN/Creatinine Ratio 15.1
[2019-07-06 13:00] VITALS: BP 92/50
[2019-07-06 16:52] VITALS: BP 104/56
--- NOTE | 2019-07-06 19:30 | NUR ---
Opening Shift Note Assumed care of patient, awake and alert. No S/S of distress/SOB or pain. On O2 at 2 Lpm/NC, bradshaw patent and intact. Instructed on POC and to call for assist PRN, patient verbalized understanding, call light within reach, bed alarm on, will continue to monitor for changes Q1hr and PRN.
[2019-07-06] MEDS: TEMAZEPAM 15 MG CAP PO PRN (21:58)
[2019-07-06 22:00] VITALS: BP 112/65
[2019-07-07 04:52] VITALS: BP 99/52
--- NOTE | 2019-07-07 06:19 | NUR ---
Changed dressing to bilateral foot, telfa in between toes and wrapped with kerlix. Zguard applied to sacrum for protection and covered with optifoam, patient tolerated well
[2019-07-07 06:38] VITALS: BP 115/59
[2019-07-07] MEDS: SPIRONOLACTONE 25 MG TAB PO SCH ×2 (06:38→17:31)
[2019-07-07] MEDS: LEVOTHYROXINE SODIUM 88 MCG TAB PO SCH (06:38)
--- NOTE | 2019-07-07 08:00 | NUR ---
Opening Shift Note Assumed care of patient, awake and alert. No S/S of distress/SOB or pain. Instructed on POC and to call for assist PRN, will continue to monitor for changes Q1hr and PRN.
[2019-07-07 09:03] VITALS: BP 137/58
[2019-07-07] MEDS: LEVOTHYROXINE SODIUM 50 MCG TAB PO SCH (09:47)
[2019-07-07] MEDS: FUROSEMIDE 40 MG/4 ML VIAL IV SCH (09:48)
[2019-07-07] MEDS: ASPirin-EC 81 mg tab PO SCH (09:48)
[2019-07-07] MEDS: CARVEDILOL 3.125 MG TAB PO SCH ×2 (09:48→21:36)
[2019-07-07] MEDS: MAGNESIUM OXIDE 400 MG TAB PO SCH ×2 (09:48→21:36)
[2019-07-07] MEDS: DIGOXIN 0.125 MG TAB PO SCH (10:00)
[2019-07-07] MEDS: RAMIPRIL 2.5 MG CAP PO SCH (10:00)
--- NOTE | 2019-07-07 11:00 | NUR ---
Midline dressing change done.
--- NOTE | 2019-07-07 12:00 | NUR ---
HR-54bpm. Held digoxin dose.
[2019-07-07 13:00] VITALS: BP 99/39
--- NOTE | 2019-07-07 14:15 | NUR ---
Spoke to Dr. Leahy re: low HR-50's and low systolic BP. Orders received.
--- NOTE | 2019-07-07 16:15 | NUR ---
Patient verbalized that, Dr. Leahy is going to do the LHC on him tomorrow when rounds was done earlier. Verified with Dr. Leahy and patient is indeed for [facility] tomorrow. Orders received. Continue care.
[2019-07-07 16:59] VITALS: BP 108/52
[2019-07-07 18:01] LABS: INR 1.25 (0.9-1.15); Partial Thromboplastin Time 29.8 sec (23.64-32.05)
--- NOTE | 2019-07-07 19:40 | NUR ---
Opening Shift Note Assumed care of patient, awake and alert. No S/S of distress/SOB or pain. Instructed on POC and to be NPO after MN, for [facility] tomorrow. Instructed to call for assist PRN, patient verbalized understanding, call light within reach, bed alarm on, will continue to monitor for changes Q1hr and PRN.
[2019-07-07 21:37] VITALS: BP 104/66
[2019-07-07] MEDS: TEMAZEPAM 15 MG CAP PO PRN (21:37)
[2019-07-08 05:10] VITALS: BP 112/70
[2019-07-08 06:17] LABS: Basophils # (auto) 0 uL; Basophils % (auto) 0.7 % (0.0-2.0); Eosinophils # (auto) 0.2 uL; Eosinophils % (auto) 4.2 % (0.0-7.0); Hematocrit 30.8 % (41.0-53.0); Hemoglobin 10.2 g/dL (13.5-17.5); Lymphocytes # (auto) 0.4 uL; Lymphocytes % (auto) 8.8 % (10.0-50.0); Mean Corpuscular Hgb Conc. 33.3 g/dL (32.0-36.0); Mean Corpuscular Volume 99.2 fL (80.0-100.0); Monocytes # (auto) 0.6 uL; Monocytes % (auto) 13.6 % (0.0-12.0); Neutrophils % (auto) 72.7 % (37.0-80.0); Platelet Count (auto) 137 10^3/uL (140-450); Red Cell Distribution Width 16.9 % (11.8-14.3); White Blood Cell 4.1 10^3/uL (4.4-10.8)
[2019-07-08 06:31] LABS: BUN/Creatinine Ratio 18.3; Calcium 8.2 mg/dL (8.5-10.1); Potassium 4.2 mmol/L (3.5-5.1)
[2019-07-08] MEDS: SPIRONOLACTONE 25 MG TAB PO SCH ×2 (06:33→18:07)
[2019-07-08] MEDS: LEVOTHYROXINE SODIUM 88 MCG TAB PO SCH (06:33)
[2019-07-08] MEDS ORDERED: LIDOCAINE 2%HCL (LOCAL ANESTH.) INJ 20ML MDV ONE (07:11)
[2019-07-08] MEDS ORDERED: IOHEXOL 350 MG/ML 100ML IJ ONE ×2 (07:11→08:51)
--- NOTE | 2019-07-08 07:15 | NUR ---
Patient off unit. Patient at Building Maintenance Technician for Left Heart Cath as per report.
[2019-07-08] MEDS ORDERED: SODIUM CHL 0.9% 50 ML ONE (08:00)
[2019-07-08] MEDS ORDERED: MIDAZOLAM HCL 1MG/1ML-2 ML VIAL ONE (08:00)
[2019-07-08] MEDS ORDERED: fentaNYL CITRATE 100 MCG/2 ML VL ONE (08:00)
[2019-07-08] MEDS ORDERED: ANGIOMAX 250 MG VIAL IV ONE (08:00)
--- NOTE | 2019-07-08 08:05 | NUR ---
Called Motion Picture Director ([id number]) that patient is off Tele because the patient was transferred to Civil Engineering Design Draftsperson before 7:00 am today.
[2019-07-08] MEDS ORDERED: CLOPIDOGREL 300 MG TAB ONE (09:14)
--- NOTE | 2019-07-08 10:46 | NUR ---
Report given by Can Tester Nurse Lyle. Administer the ordered medications for 1000 am today as per Can Tester.
--- NOTE | 2019-07-08 11:00 | NUR ---
Patient back to room post left heart cath as per Dr. Leahy. Right groin dressing clean, dry and intact. Lay flat in bed up to 2:00 pm today as per Stretcher Leveler Operator Helper. Family member at bedside.
--- NOTE | 2019-07-08 11:10 | NUR ---
Changed the suction canister, Yankauer tube. About 100 ml of light, brownish fluid collected from the old canister.
--- NOTE | 2019-07-08 11:15 | NUR ---
BP = 120/65, Heart rate = 70, RR = 18, O2 Sat = 93% to 95% on O2 at 2 LPM via nasal cannula.
[2019-07-08] MEDS: FUROSEMIDE 40 MG/4 ML VIAL IV SCH (11:22)
[2019-07-08] MEDS: MAGNESIUM OXIDE 400 MG TAB PO SCH ×2 (11:22→22:00)
[2019-07-08] MEDS: CARVEDILOL 3.125 MG TAB PO SCH ×2 (11:23→22:00)
[2019-07-08] MEDS: LEVOTHYROXINE SODIUM 50 MCG TAB PO SCH (11:23)
[2019-07-08] MEDS: ASPirin-EC 81 mg tab PO SCH (11:23)
[2019-07-08] MEDS: DIGOXIN 0.125 MG TAB PO SCH (11:23)
[2019-07-08] MEDS: RAMIPRIL 2.5 MG CAP PO SCH (11:25)
[2019-07-08 13:00] VITALS: BP 110/65
--- NOTE | 2019-07-08 14:58 | NUR ---
Nutrition Follow-up Notes Wt.: 88.0 kg as of yesterday. Pt's NPO, off the floor for a procedure when rounded this morning. Noted pt's s/p left and right coronary angiography, no signs of distress noted earlier, resumed on Pureed Cardiac: 2 gms Na, Low Chol, Low Fat diet with adequate PO intake aeb 75% consumed meal on today's lunch. Noted pt's for active Wound consult Est. Needs: 1800 kcal to 2250 kcal (25-30 kcal/kgBW), 90 gms to 108 gms pro (1.0-1.2 gms/kgBW). Will continue to monitor pertinent labs and reassess nutrient need prn Labs: Gluc 113 H, BUN 36 H, Ca 8.2 L, Trop I 0.068 H Skin: Juliocesar scale 17, mod risk, pt's posterior sacrum blanchable redness per construction checker. Pls refer to latest passenger screener's notes for further details re: tx plans. GI: Pt had 1 BM 07/05/19 per construction checker. PES: Altered nutrition related lab values r/t current/chronic medical condition aeb hyperglycemia, hypocalcemia, elev. Trop I level Will continue to monitor PO intake, skin status, pertinent labs and weight trend. F/u in 3 to 5 days. Rec.: 1.) Continue close supervision ad feeding assistance prn with meals. 2.) If Albumin continues trending down, consider Prostat 1 pkt BID. 3.) Refer to RD for further nutrition educ. and weight monitoring upon discharge. 4.) Continue current plan of care.
--- NOTE | 2019-07-08 16:28 | NUR ---
PT REFUSED PHYSICAL THERAPY TODAY. PT TOO TIRED FROM FRAME COVERER PROCEDURE TODAY. DUANE ADAMS WAS NOTIFIED. Addendum: 07/08/19 at 1629 by JAYA LOVE PTT Amended: Links added.
[2019-07-08 17:17] VITALS: BP 100/51
--- NOTE | 2019-07-08 18:48 | NUR ---
Right groin dressing clean, dry and intact.
--- NOTE | 2019-07-08 19:30 | NUR ---
Opening Shift Note Assumed care of patient, awake and alert x4. No S/S of distress/SOB or pain. Right groin dressing clean dry and intact. No evidence of hematoma. PICC patent to ARLETTE. Requesting a sleeping pill. Will medicate per orders. Dressings to wounds clean dry and intact Instructed on POC and to call for assist PRN, will continue to monitor for changes Q1hr and PRN.
[2019-07-08 20:00] VITALS: BP 120/65
[2019-07-08 21:00] VITALS: BP 115/67
[2019-07-08] MEDS: TEMAZEPAM 15 MG CAP PO PRN (22:00)
[2019-07-09 04:30] VITALS: BP 105/58
--- NOTE | 2019-07-09 05:30 | NUR ---
Opening Shift Note Assumed care of patient, awake and alert. No S/S of distress/SOB or pain. Did not eat any dinner states " Im still having a hard time keeping it down" Difficult to swallow at times per patient. Meds given in applesauce. Instructed on POC and to call for assist PRN, will continue to monitor for changes Q1hr and PRN.
--- NOTE | 2019-07-09 07:00 | NUR ---
PICC dressing changed to RALETTE using sterile technique. Patient tolerated well. No inflammation noted. No complaints of pain. Very pleasant gentlemen, slept well throughout night
[2019-07-09] MEDS: LEVOTHYROXINE SODIUM 88 MCG TAB PO SCH (07:13)
[2019-07-09] MEDS: SPIRONOLACTONE 25 MG TAB PO SCH ×2 (07:13→18:23)
[2019-07-09 09:00] VITALS: BP 109/58
[2019-07-09] MEDS: RAMIPRIL 2.5 MG CAP PO SCH (10:00)
[2019-07-09] MEDS: CARVEDILOL 3.125 MG TAB PO SCH ×2 (10:00→22:00)
[2019-07-09] MEDS: ASPirin-EC 81 mg tab PO SCH (10:18)
[2019-07-09] MEDS: DIGOXIN 0.125 MG TAB PO SCH (10:18)
[2019-07-09] MEDS: CLOPIDOGREL BISULFATE 75 MG TAB PO SCH (10:18)
[2019-07-09] MEDS: MAGNESIUM OXIDE 400 MG TAB PO SCH ×2 (10:18→22:00)
[2019-07-09] MEDS: LEVOTHYROXINE SODIUM 50 MCG TAB PO SCH (10:18)
[2019-07-09] MEDS: FUROSEMIDE 40 MG/4 ML VIAL IV SCH (10:18)
[2019-07-09 12:56] VITALS: BP 123/77
[2019-07-09 16:54] VITALS: BP 97/54
[2019-07-09 20:00] VITALS: BP 109/58
[2019-07-09 22:17] VITALS: BP 112/64
[2019-07-10 05:18] VITALS: BP 111/53
[2019-07-10] MEDS: SPIRONOLACTONE 25 MG TAB PO SCH ×2 (06:00→18:08)
[2019-07-10] MEDS: LEVOTHYROXINE SODIUM 88 MCG TAB PO SCH (06:46)
[2019-07-10 10:06] LABS: Basophils # (auto) 0 uL; Basophils % (auto) 0.5 % (0.0-2.0); Eosinophils # (auto) 0 uL; Eosinophils % (auto) 0.9 % (0.0-7.0); Hematocrit 34.2 % (41.0-53.0); Hemoglobin 11.3 g/dL (13.5-17.5); Lymphocytes # (auto) 0.4 uL; Lymphocytes % (auto) 11.6 % (10.0-50.0); Mean Corpuscular Hemoglobin 33.1 pg (28.0-32.0); Mean Corpuscular Volume 100.5 fL (80.0-100.0); Monocytes # (auto) 0.4 uL; Monocytes % (auto) 11.6 % (0.0-12.0); Neutrophils # (auto) 2.9 uL; Neutrophils % (auto) 75.4 % (37.0-80.0); Nucleated Red Blood Cells % 0.2 %; Platelet Count (auto) 122 10^3/uL (140-450); Red Cell Distribution Width 17.4 % (11.8-14.3); White Blood Cell 3.9 10^3/uL (4.4-10.8)
[2019-07-10 10:24] LABS: Albumin 2.5 g/dL (3.4-5.0); Calcium 7.8 mg/dL (8.5-10.1); Potassium 3.9 mmol/L (3.5-5.1)
[2019-07-10 10:28] LABS: BUN/Creatinine Ratio 16.7; Bilirubin, Total 0.6 mg/dL (0.2-1.0); Total Protein 4.9 g/dL (6.4-8.2)
[2019-07-10 10:32] VITALS: BP 117/63
[2019-07-10] MEDS: FUROSEMIDE 40 MG/4 ML VIAL IV SCH (10:32)
[2019-07-10] MEDS: RAMIPRIL 2.5 MG CAP PO SCH (10:33)
[2019-07-10] MEDS: CARVEDILOL 3.125 MG TAB PO SCH ×2 (10:34→21:51)
[2019-07-10] MEDS: CLOPIDOGREL BISULFATE 75 MG TAB PO SCH (10:34)
[2019-07-10] MEDS: LEVOTHYROXINE SODIUM 50 MCG TAB PO SCH (10:34)
[2019-07-10] MEDS: MAGNESIUM OXIDE 400 MG TAB PO SCH ×2 (10:34→21:48)
[2019-07-10] MEDS: DIGOXIN 0.125 MG TAB PO SCH (10:35)
[2019-07-10] MEDS: ASPirin-EC 81 mg tab PO SCH (10:35)
[2019-07-10 12:40] VITALS: BP 120/51
[2019-07-10 16:36] VITALS: BP 100/55
--- NOTE | 2019-07-10 19:25 | NUR ---
Opening Shift Note Assumed care of patient, awake and alert. No S/S of distress/SOB or pain. Fall and safety precautions in place. Call light within reach. Instructed on POC and to call for assist PRN, will continue to monitor for changes Q1hr and PRN.
[2019-07-10] MEDS: TEMAZEPAM 15 MG CAP PO PRN (21:48)
[2019-07-10 22:00] VITALS: BP 108/53
[2019-07-11 05:00] VITALS: BP 119/71
[2019-07-11] MEDS: SPIRONOLACTONE 25 MG TAB PO SCH (05:28)
[2019-07-11] MEDS: LEVOTHYROXINE SODIUM 88 MCG TAB PO SCH (05:28)
[2019-07-11 08:56] VITALS: BP 108/54
[2019-07-11] MEDS: DIGOXIN 0.125 MG TAB PO SCH (09:35)
[2019-07-11] MEDS: MAGNESIUM OXIDE 400 MG TAB PO SCH (09:36)
[2019-07-11] MEDS: LEVOTHYROXINE SODIUM 50 MCG TAB PO SCH (09:36)
[2019-07-11] MEDS: ASPirin-EC 81 mg tab PO SCH (09:36)
[2019-07-11] MEDS: CLOPIDOGREL BISULFATE 75 MG TAB PO SCH (09:36)
[2019-07-11] MEDS: FUROSEMIDE 40 MG/4 ML VIAL IV SCH (09:37)
[2019-07-11] MEDS: RAMIPRIL 2.5 MG CAP PO SCH (09:39)
[2019-07-11] MEDS: CARVEDILOL 3.125 MG TAB PO SCH (09:41)
--- NOTE | 2019-07-11 11:43 | NUR ---
WOUND CARE NOTE: Patient has Discharge order. Wound care into assist bedside nurse to take DC photo of wounds. Patient's BLE resolving blisters, cyanotic toes, resolving blisters, PVD are clean and dry. Cleansed as ordered and photograph taken for reference. Patient tolerated well. Patient and family wound care education provided, verbalized understanding.
--- NOTE | 2019-07-11 12:43 | NUR ---
Discharge planning per consult, patient has orders for home health. Choice letter given, referral sent to [facility]. Placed a follow up call, spoke with [facility] and was advised that they will accept this patient and start of care will be within 24-48 hours upon discharge. Nurse Sharlene was advised of dc plan. Addendum: 07/11/19 at 1244 by COCO MALDONADO Amended: Links added.
--- NOTE | 2019-07-11 12:48 | NUR ---
LEONA BRANDT [facility] PHONE NUMBER GIVEN TO PATIENT
--- NOTE | 2019-07-11 13:21 | NUR ---
Discharge instructions given as ordered. Encourage to follow up with PMD as instructed. All questions and concerns addressed. Patient verbalized understanding. Medication reconciliation form completed and copy given to patient. IV removed with catheter intact, pressure dressing applied, bradshaw catheter removed. Telemetry unit returned to ICU. Patient taken to vehicle via wheelchair with all personal belongings, accompanied by staff and family member. No distress noted at time of departure.
== END 2019-07-11 13:15 | disposition home health service (06) | DRG 246 ==
LOC: ER 21:40 → TELE 21:41 → TELE-WESTW 07-03 08:43
PROVIDERS: ADMIT Nurse Practitioner Family; ATTEND Internal Medicine Cardiovascular Disease
PROC: 027034Z Dilation of Coronary Artery, One Artery with Drug-eluting Intraluminal Device, Percutaneous Approach (ICD-10-PCS; principal; 2019-07-08)
PROC: 4A023N7 Measurement of Cardiac Sampling and Pressure, Left Heart, Percutaneous Approach (ICD-10-PCS; 2019-07-08)
PROC: B2111ZZ Fluoroscopy of Multiple Coronary Arteries using Low Osmolar Contrast (ICD-10-PCS; 2019-07-08)
PROC: B2131ZZ Fluoroscopy of Multiple Coronary Artery Bypass Grafts using Low Osmolar Contrast (ICD-10-PCS; 2019-07-08)
PROC: B2181ZZ Fluoroscopy of Left Internal Mammary Bypass Graft using Low Osmolar Contrast (ICD-10-PCS; 2019-07-08)
PROC: B245ZZ3 Ultrasonography of Left Heart, Intravascular (ICD-10-PCS; 2019-07-08)
PROC: 0W9B3ZZ Drainage of Left Pleural Cavity, Percutaneous Approach (ICD-10-PCS; 2019-07-10)
DX: I25.10 Atherosclerotic heart disease of native coronary artery without angina pectoris (principal); I50.43 Acute on chronic combined systolic (congestive) and diastolic (congestive) heart failure; J91.8 Pleural effusion in other conditions classified elsewhere; I11.0 Hypertensive heart disease with heart failure; E03.9 Hypothyroidism, unspecified; I25.5 Ischemic cardiomyopathy; D64.9 Anemia, unspecified; I07.1 Rheumatic tricuspid insufficiency; I70.0 Atherosclerosis of aorta; E87.6 Hypokalemia; R13.10 Dysphagia, unspecified; H53.8 Other visual disturbances; Z95.1 Presence of aortocoronary bypass graft; Z79.02 Long term (current) use of antithrombotics/antiplatelets; Z79.82 Long term (current) use of aspirin; Z86.73 Personal history of transient ischemic attack (TIA), and cerebral infarction without residual deficits; Z88.8 Allergy status to other drugs, medicaments and biological substances; Z79.899 Other long term (current) drug therapy
CPT/HCPCS: 32555; 36415; 36600; 70450; 71045; 80048; 80053; 80162; 81001; 82805; 83605; 83735; 83880; 84443; 84484; 85025; 85610; 85730; 87081; 87205; 92928; 93005; 93306; 93454; 96374; 96376; 97110; 97116; 97163; 97530; G0378; J2250

== ENCOUNTER → 2019-07-15 | Outpatient (CLI) | payer MEDICARE, OTHER ==
[2019-07-15 17:29] LABS: BUN/Creatinine Ratio 17.5; Potassium 4.3 mmol/L (3.5-5.1)
== END | disposition home or self-care (01) ==
LOC: Rad HDHVI 10:39
PROVIDERS: ATTEND Internal Medicine Cardiovascular Disease
DX: I11.9 Hypertensive heart disease without heart failure (principal); I50.9 Heart failure, unspecified; J90 Pleural effusion, not elsewhere classified; I70.0 Atherosclerosis of aorta; I25.10 Atherosclerotic heart disease of native coronary artery without angina pectoris; Z95.1 Presence of aortocoronary bypass graft; Z95.0 Presence of cardiac pacemaker; Z87.891 Personal history of nicotine dependence
CPT/HCPCS: 36415; 71046; 80048; 83880